=== PATIENT | female | born 1930 | race Caucasian/White ===

== ENCOUNTER → 2017-07-11 | Outpatient (CLI) | payer MEDICARE ==
[~2017-07-11] MED LIST: BRIM0.2S; CIPR250 PO; GLYB5TAB3 PO; METF500 PO; PRIN10TA PO
--- NOTE | 2017-07-11 12:11 | RADRPT ---
EXAM DATE/TIME: 07/11/2017 10:54 [facility] COMPARISON: No previous studies available for comparison. INDICATIONS : Intermitten dysphagia. FLUORO TIME: 1.7 minutes IMAGE COUNT: 1 CONTRAST: Dose as prescribed by speech pathologist. MEDICAL HISTORY : None. SURGICAL HISTORY : None. ENCOUNTER: Initial ACUITY: 2 weeks PAIN SCORE: 0/10 LOCATION: Esophagus. FINDINGS: A modified barium swallow was performed with speech pathology. Patient was given a variety of liquids to swallow. Patient tolerated all consistencies without evidence of aspiration or penetration. For a full detailed report, see report by the speech pathologist. CONCLUSION: Normal swallowing mechanism without evidence of aspiration. Nabli Kenny MD on July 11, 2017 at 12:08 Board Certified Radiologist. This report was verified electronically.
== END ==
LOC: HRAD 09:57
PROVIDERS: ATTEND Internal Medicine Gastroenterology
DX: R13.10 Dysphagia, unspecified (principal)
CPT/HCPCS: 74230; 92611; G8996; G8997; G8998

== ENCOUNTER 2017-11-28 13:45 | Observation (INO) | payer MEDICARE ==
[~2017-11-28] VITALS: Ht 160 cm; Wt 51.4 kg
[2017-11-28] VITALS (7 sets, daily range): BP systolic 148–164; BP diastolic 62–76; PULSE 67–85; RESP 15–18; TEMP 97.4–98.1; O2SAT 98–100
[2017-11-28] MEDS ORDERED: GLIP5TAB8 PO (14:19)
[2017-11-28] MEDS ORDERED: METF500T PO (14:19)
[2017-11-28] MEDS ORDERED: ASPI-516 PO (14:19)
[2017-11-28] MEDS ORDERED: SODIUM CHLORIDE 0.9% FLUSH 10 ML FLUSH IVF PRN (14:30)
--- NOTE | 2017-11-28 15:09 | PD ---
HPI Chief Complaint: Dizziness Time Seen by Provider: 14:29 Travel History International Travel<30 days: No Contact w/Intl Traveler<30days: No Traveled to known affect area: No History of Present Illness HPI pt is a pleasant 87 y.o female with a hx of DM who presents to the ED with Diplopia, and dizziness. Pt states that this morning she woke up with dizziness and inc severity of her double vision. She also reports having loss of balance and nausea. went to her Card Assembler who told her to come to the ED bc she might be having a stroke. Pt denies any H/A, difficulty with speech, weakness, or numbness of extremities. Also denies any lightheadedness, fever, palpitations, CP, or SOB. Modifying Factors: None Associated Signs & Symptoms: Nausea, dizziness, double vision Risk Factors: None History Past Medical History Menopausal: Yes Social History Alcohol Use: No Tobacco Use: No Allergies-Medications (Allergen,Severity, Reaction): Coded Allergies: lansoprazole (Verified Allergy, Intermediate, hives, 11/28/17) naproxen (Verified Allergy, Intermediate, hives, 11/28/17) simvastatin (Verified Allergy, Intermediate, hives, 11/28/17) penicillin G (Verified Allergy, Mild, RASH, 11/28/17) Reported Meds & Prescriptions Reported Meds & Active Scripts Active Reported Aspirin 81 Mg Chew 81 Mg PO DAILY Glipizide 5 Mg Tab 5 Mg PO DAILY Take 30 minutes before a meal Review of Systems Except as stated in HPI: all other systems reviewed are Neg Eyes: Positive: Diploplia Physical Exam Narrative GENERAL: Well-developed pleasant elderly white female patient currently and mild distress. Awake and oriented 3. SKIN: Focused skin assessment warm/dry. HEAD: Atraumatic. Normocephalic. EYES: Pupils equal and round. No scleral icterus. No injection or drainage. ENT: No nasal bleeding or discharge. Mucous membranes pink and moist. NECK: Trachea midline. No JVD. Supple. CARDIOVASCULAR: Regular rate and rhythm. No murmur appreciated. RESPIRATORY: No accessory muscle use. Clear to auscultation. Breath sounds equal bilaterally. GASTROINTESTINAL: Abdomen soft, non-tender, nondistended. Hepatic and splenic margins not palpable. MUSCULOSKELETAL: No obvious deformities. No clubbing. No cyanosis. No edema. NEUROLOGICAL: Awake and alert. No obvious cranial nerve deficits. Motor grossly within normal limits. Normal speech. No pronator drift. PSYCHIATRIC: Appropriate mood and affect; insight and judgment normal. Data Data Last Documented VS Vital Signs Date Time Temp Pulse Resp B/P (MAP) Pulse Ox O2 Delivery O2 Flow Rate FiO2 11/28/17 17:03 98.0 67 15 160/69 (99) 99 Room Air Orders Orders Electrocardiogram (11/28/17 14:29) Complete Blood Count With Diff (11/28/17 14:29) Comprehensive Metabolic Panel (11/28/17 14:29) Ckmb (Isoenzyme) Profile (11/28/17 14:29) Troponin I (11/28/17 14:29) Act Partial Throm Time (Ptt) (11/28/17 14:29) Prothrombin Time / Inr (Pt) (11/28/17 14:29) Urinalysis - C+S If Indicated (11/28/17 14:29) Chest, Single Ap (11/28/17 14:29) Ct Brain W/O Iv Contrast(Rout) (11/28/17 14:29) Ecg Monitoring (11/28/17 14:29) Iv Access Insert/Monitor (11/28/17 14:29) Oximetry (11/28/17 14:29) Sodium Chloride 0.9% Flush (Ns Flush) (11/28/17 14:30) Electrocardiogram (11/28/17 14:04) Aspirin (Aspirin) (11/28/17 18:00) Admit Order (Ed Use Only) (11/28/17 17:54) Labs Laboratory Tests Test 11/28/17 14:55 11/28/17 16:55 White Blood Count 6.4 TH/MM3 Red Blood Count 5.07 MIL/MM3 Hemoglobin 14.8 GM/DL Hematocrit 44.5 % Mean Corpuscular Volume 87.8 FL Mean Corpuscular Hemoglobin 29.1 PG Mean Corpuscular Hemoglobin Concent 33.2 % Red Cell Distribution Width 14.8 % Platelet Count 176 TH/MM3 Mean Platelet Volume 8.2 FL Neutrophils (%) (Auto) 71.5 % Lymphocytes (%) (Auto) 21.2 % Monocytes (%) (Auto) 4.5 % Eosinophils (%) (Auto) 1.6 % Basophils (%) (Auto) 1.2 % Neutrophils # (Auto) 4.6 TH/MM3 Lymphocytes # (Auto) 1.4 TH/MM3 Monocytes # (Auto) 0.3 TH/MM3 Eosinophils # (Auto) 0.1 TH/MM3 Basophils # (Auto) 0.1 TH/MM3 CBC Comment DIFF FINAL Differential Comment Prothrombin Time 10.7 SEC Prothromb Time International Ratio 1.1 RATIO Activated Partial Thromboplast Time 26.1 SEC Blood Urea Nitrogen 29 MG/DL Creatinine 1.42 MG/DL Random Glucose 111 MG/DL Total Protein 7.2 GM/DL Albumin 3.8 GM/DL Calcium Level 9.0 MG/DL Alkaline Phosphatase 86 U/L Aspartate Amino Transf (AST/SGOT) 34 U/L Alanine Aminotransferase (ALT/SGPT) 20 U/L Total Bilirubin 0.6 MG/DL Sodium Level 140 MEQ/L Potassium Level 4.9 MEQ/L Chloride Level 107 MEQ/L Carbon Dioxide Level 22.0 MEQ/L Anion Gap 11 MEQ/L Estimat Glomerular Filtration Rate 35 ML/MIN Total Creatine Kinase 93 U/L Troponin I LESS THAN 0.02 NG/ML Urine Color LIGHT-YELLOW Urine Turbidity CLEAR Urine pH 5.5 Urine Specific [place] 1.010 Urine Protein NEG mg/dL Urine Glucose (UA) NEG mg/dL Urine Ketones NEG mg/dL Urine Occult Blood NEG Urine Nitrite NEG Urine Bilirubin NEG Urine Urobilinogen LESS THAN 2.0 MG/DL Urine Leukocyte Esterase MOD Urine WBC 6 /hpf Urine Squamous Epithelial Cells 1 /hpf Urine Transitional Epithelial Cells <1 /hpf Urine Hyaline Casts 2 /lpf Urine Granular Casts 2 /lpf Microscopic Urinalysis Comment CULT NOT INDICATED MDM Medical Decision Making Medical Screen Exam Complete: Yes Emergency Medical Condition: Yes Medical Record Reviewed: Yes Interpretation(s) EKG shows normal sinus rhythm at a rate of 70 bpm with a left bundle branch block pattern unchanged from previous EKGs. Laboratory Tests Test 11/28/17 14:55 11/28/17 16:55 Neutrophils (%) (Auto) 71.5 % (16.0-70.0) Blood Urea Nitrogen 29 MG/DL (7-18) Creatinine 1.42 MG/DL (0.50-1.00) Random Glucose 111 MG/DL (74-106) Estimat Glomerular Filtration Rate 35 ML/MIN (>89) Troponin I LESS THAN 0.02 NG/ML Urine Leukocyte Esterase MOD (NEG) Urine WBC 6 /hpf (0-5) Last [address] 11/28/17 1429 Signed Impressions: Service Date/Time: Tuesday, November 28, 2017 15:42 - CONCLUSION: 1. Senescent changes without acute intracranial abnormality. Pérez Tovar MD Chest X-Ray 11/28/17 1429 Signed Impressions: Service Date/Time: Tuesday, November 28, 2017 14:59 - CONCLUSION: No acute disease. Daniel Grider MD Differential Diagnosis TIA versus CVA versus intracranial mass versus dehydration versus electrolyte abnormalities Narrative Course CAT scan was unremarkable. Lab work was fairly unremarkable. However, considering patient's symptoms, there is concern of possible TIA and aspirin has been given in the ER. Case is discussed with Dr. Melissa for admission. Diagnosis Primary Impression: TIA (transient ischemic attack) Admitting Information Admitting Physician Requests: Admit Kinga Linares MD November 28, 2017 15:09
--- NOTE | 2017-11-28 15:24 | RADRPT ---
EXAM DATE/TIME: 11/28/2017 14:59 [facility] COMPARISON: CHEST SINGLE AP, June 23, 2015, 15:57. INDICATIONS : Heart palpitations and shortness of breath. MEDICAL HISTORY : Carcinoma, breast. SURGICAL HISTORY : Mastectomy, left. Mastectomy, right. ENCOUNTER: Initial ACUITY: 1 day PAIN SCORE: 0/10 LOCATION: chest FINDINGS: A single view of the chest demonstrates the lungs to be symmetrically aerated without evidence of mas s, infiltrate or effusion. The cardiomediastinal contours are unremarkable. Osseous structures are intact. CONCLUSION: No acute disease. Daniel Grider MD on November 28, 2017 at 15:22 Board Certified Radiologist. This report was verified electronically.
[2017-11-28 15:29] LABS: AUTOMATED NEUTROPHIL # 4.6 TH/MM3 (1.8-7.7); BASOPHIL # 0.1 TH/MM3 (0-0.2); BASOPHIL % 1.2 % (0.0-2.0); EOSINOPHIL # 0.1 TH/MM3 (0-0.4); EOSINOPHIL % 1.6 % (0.0-4.0); HEMATOCRIT 44.5 % (35.0-46.0); HEMOGLOBIN 14.8 GM/DL (11.6-15.3); LYMPH % 21.2 % (9.0-44.0); LYMPHOCYTE # 1.4 TH/MM3 (1.0-4.8); MEAN CELL VOLUME 87.8 FL (80.0-100.0); MEAN CORPUSCULAR HEMOGLOBIN 29.1 PG (27.0-34.0); MEAN CORPUSCULAR HGB CONC 33.2 % (32.0-36.0); MEAN PLATELET VOLUME 8.2 FL (7.0-11.0); MONO % 4.5 % (0.0-8.0); MONOCYTE # 0.3 TH/MM3 (0-0.9); NEUT % 71.5 % (16.0-70.0); PLATELET COUNT 176 TH/MM3 (150-450); RED BLOOD COUNT 5.07 MIL/MM3 (4.00-5.30); RED CELL DISTRIBUTION WIDTH 14.8 % (11.6-17.2); WHITE BLOOD COUNT 6.4 TH/MM3 (4.0-11.0)
[2017-11-28 15:44] LABS: ALBUMIN 3.8 GM/DL (3.4-5.0); ALT (GPT) 20 U/L (10-53); AST (GOT) 34 U/L (15-37); CREATININE 1.42 MG/DL (0.50-1.00); GLOMERULAR FILTRATION RATE 35 ML/MIN (>89); GLUCOSE,RANDOM 111 MG/DL (74-106)
--- NOTE | 2017-11-28 15:52 | RADRPT ---
EXAM DATE/TIME: 11/28/2017 15:42 [facility] COMPARISON: No previous studies available for comparison. INDICATIONS : Dizziness. Patient states she has difficulty focusing her eyes. RADIATION DOSE: 33.41 CTDIvol (mGy) MEDICAL HISTORY : Cardiovascular disease. Hypertension. Diabetes mellitus type 2.Carcinoma, breast. SURGICAL HISTORY : None. ENCOUNTER: Initial ACUITY: 1 day PAIN SCALE: 0/10 LOCATION: cranial TECHNIQUE: Multiple contiguous axial images were obtained of the head. Using automated exposure control and adj ustment of the mA and/or kV according to patient size, radiation dose was kept as low as reasonably a chievable to obtain optimal diagnostic quality images. DICOM format image data is available electro nically for review and comparison. FINDINGS: CEREBRUM: Moderate diffuse cerebral atrophy. The ventricles are normal for degree of atrophy. No evidence of m idline shift, mass lesion, hemorrhage or acute infarction. No extra-axial fluid collections are seen . POSTERIOR FOSSA: The cerebellum and brainstem are intact. The 4th ventricle is midline. The cerebellopontine angle i s unremarkable. EXTRACRANIAL: The visualized portion of the orbits is intact. SKULL: The calvaria is intact. No evidence of skull fracture. CONCLUSION: 1. Senescent changes without acute intracranial abnormality. Pérez Tovar MD on November 28, 2017 at 15:50 Board Certified Radiologist. This report was verified electronically.
[2017-11-28 16:00] LABS: ALKALINE PHOSPHATASE 86 U/L (45-117); BLOOD UREA NITROGEN 29 MG/DL (7-18); CHLORIDE 107 MEQ/L (98-107); SODIUM (NA) 140 MEQ/L (136-145); TOTAL BILIRUBIN ADULT 0.6 MG/DL (0.2-1.0); TOTAL PROTEIN 7.2 GM/DL (6.4-8.2); TROPONIN I LESS THAN 0.02 NG/ML (0.02-0.05)
[2017-11-28 16:51] LABS: INTERNATIONAL NORMALIZED RATIO 1.1 RATIO; PROTHROMBIN TIME - PATIENT 10.7 SEC (9.8-11.6)
[2017-11-28 17:25] LABS: BILIRUBIN, URINE NEG (NEG); BLOOD, URINE NEG (NEG); GLUCOSE,URINE NEG (NEG); HYALINE CAST, URINE 2 /lpf (RARE); KETONE, URINE NEG (NEG); NITRITE,URINE NEG (NEG); PH, URINE 5.5 (5.0-8.5); SQUAMOUS EPITHELIAL CELL URINE 1 /hpf (0-5); TRANSITIONAL EPI CELLS, URINE <1 /hpf; URINE COLOR LIGHT-YELLOW (YELLW/STRAW); URINE LEUKOCYTE ESTERASE MOD (NEG)
[2017-11-28] MEDS ORDERED: ASPIRIN 325 MG TAB PO ONE (18:00)
[2017-11-28] MEDS ORDERED: MAGNESIUM HYDROXIDE SUSP 30 ML CUP PO PRN (20:45)
[2017-11-28] MEDS ORDERED: GLUCAGON 1 MG/ML VIAL OTHER PRN (20:45)
[2017-11-28] MEDS ORDERED: ACETAMINOPHEN 325 MG TAB PO PRN ×2 (20:45→23:45)
[2017-11-28] MEDS ORDERED: BISACODYL 10 MG SUPP RECTAL PRN (20:45)
[2017-11-28] MEDS ORDERED: SODIUM CHLORIDE 0.9% FLUSH 10 ML FLUSH IV FLUSH PRN (20:45)
[2017-11-28] MEDS ORDERED: SENNOSIDES 8.6 MG TAB PO PRN (20:45)
[2017-11-28] MEDS ORDERED: NALOXONE HCL 0.4 MG/ML AMP IV PUSH PRN (20:45)
[2017-11-28] MEDS ORDERED: LACTULOSE SYRUP 20 GM/30 ML CUP PO PRN (20:45)
[2017-11-28] MEDS ORDERED: DEXTROSE 50% IN WATER 50 ML VIAL(D50) IV PUSH PRN (20:45)
[2017-11-28] MEDS: DOCUSATE SODIUM 50 MG/SENNA 8.6 MG TAB PO SCH (21:00)
[2017-11-28] MEDS: INSULIN ASPART SUPPLEMENTAL SCALE SQ SCH (21:00)
--- NOTE | 2017-11-28 21:16 | HHI.HP ---
HPI Service [facility] Hospitalists Primary Care Physician Sergey Hodge D.O. Admission Diagnosis TIA Travel History International Travel<30 Days: No Contact w/Intl Traveler <30 Da: No Traveled to Known Affected Are: No History of Present Illness Very pleasant 87yo female with PMH of type 2 DM severe aortic stenosis, CKD presents to ED for 1 day history of binocular and horizontal diplopia. She went to her bridge ironworker helper office today (Dr. Chaney) who noticed that patient could not move her right eye medially. After discussion with PCP, patient was sent to ER for evaluation. Patient states the double vision goes away if she covers either eye. It is worse when she looks to her left. She denies speech problems, paresthesias, weakness, headache. Symptoms moderate. She does endorse some dysequilibrium today which she relates to the vision problem. Review of Systems ROS Limitations: Other (memory issues) Constitutional: DENIES: Fever, Chills Endocrine: DENIES: Polydipsia, Polyuria Eyes: COMPLAINS OF: Double Vision, DENIES: Eye inflammation, Eye pain, Vision loss Ears, nose, mouth, throat: DENIES: Hoarseness, Odynophagia Respiratory: DENIES: Cough, Shortness of breath Cardiovascular: DENIES: Chest pain, Palpitations Gastrointestinal: COMPLAINS OF: Difficulty Swallowing, DENIES: Constipation Musculoskeletal: DENIES: Stiffness, Back pain Integumentary: DENIES: Pruritus, Rash Hematologic/lymphatic: DENIES: Lymphadenopathy Neurologic: COMPLAINS OF: Poor Balance, DENIES: Abnormal gait, Headache, Localized weakness, Paresthesias, Seizures, Speech Problems, Tremor Psychiatric: DENIES: Anxiety, Confusion Past Family Social History Past Medical History DM 2 CKD stage 3 memory loss moderate mitral valve stenosis and regurgitation, severe aortic valve stenosis, normal LV function glaucoma dysphagia (was supposed to have EGD several months ago but doesn't look like she did) peptic ulcer disease peripheral vascular disease subclinical hypothyroidism hyperlipidemia LVH hiatal hernia history of gait ataxia essential tremor Reported Medications Allergies Coded Allergies Type Severity Reaction Last Updated Verified lansoprazole Allergy Intermediate hives 11/28/17 Yes naproxen Allergy Intermediate hives 11/28/17 Yes simvastatin Allergy Intermediate hives 11/28/17 Yes penicillin G Allergy Mild RASH 11/28/17 Yes Active Scripts Medications Dose Route/Sig Max Daily Dose Days Date Category Dose Instructions Aspirin 81 Mg Chew 81 Mg PO DAILY 11/28/17 Reported Glipizide 5 Mg Tab 5 Mg PO DAILY 11/28/17 Reported Take 30 minutes before a meal Allergies: Coded Allergies: lansoprazole (Verified Allergy, Intermediate, hives, 11/28/17) naproxen (Verified Allergy, Intermediate, hives, 11/28/17) simvastatin (Verified Allergy, Intermediate, hives, 11/28/17) penicillin G (Verified Allergy, Mild, RASH, 11/28/17) Family History reviewed, [place] Social History no e/t/d Physical Exam Vital Signs Vital Signs Date Time Temp Pulse Resp B/P (MAP) Pulse Ox O2 Delivery O2 Flow Rate FiO2 11/28/17 18:09 98.1 85 15 159/62 (94) 98 Room Air 11/28/17 17:03 98.0 67 15 160/69 (99) 99 Room Air 11/28/17 15:54 97.6 68 16 148/72 (97) 100 Room Air 11/28/17 14:30 17 98 11/28/17 14:12 74 18 160/76 (104) 100 11/28/17 14:10 Room Air 11/28/17 13:46 97.4 77 18 164/71 (102) 99 Physical Exam GENERAL: This is a well-nourished, well-developed patient, in no apparent distress. SKIN: No rashes, ecchymoses or lesions. Cool and dry. HEAD: Atraumatic. Normocephalic. EYES: Unable to adduct her right eye past the midline. No ptosis. Pupils equal round and reactive, with intact efferent and afferent response. No scleral icterus. No injection or drainage. ENT: Throat without erythema, tonsillar hypertrophy or exudate. Uvula midline. Airway patent. NECK: Trachea midline. No JVD or lymphadenopathy. CARDIOVASCULAR: Loud systolic murmur best heard at LSB. Regular rate and rhythm. RESPIRATORY: Clear to auscultation. Breath sounds equal bilaterally. No wheezes , rales, or rhonchi. GASTROINTESTINAL: Abdomen soft, non-tender, nondistended. BS+ MUSCULOSKELETAL: Extremities without clubbing, cyanosis, or edema. NEUROLOGICAL: Awake and alert. Cranial nerves II through XII intact. Motor and sensory grossly within normal limits. Five out of 5 muscle strength in all muscle groups. Normal speech. Laboratory Laboratory Tests Test 11/28/17 14:55 11/28/17 16:55 White Blood Count 6.4 Red Blood Count 5.07 Hemoglobin 14.8 Hematocrit 44.5 Mean Corpuscular Volume 87.8 Mean Corpuscular Hemoglobin 29.1 Mean Corpuscular Hemoglobin Concent 33.2 Red Cell Distribution Width 14.8 Platelet Count 176 Mean Platelet Volume 8.2 Neutrophils (%) (Auto) 71.5 Lymphocytes (%) (Auto) 21.2 Monocytes (%) (Auto) 4.5 Eosinophils (%) (Auto) 1.6 Basophils (%) (Auto) 1.2 Neutrophils # (Auto) 4.6 Lymphocytes # (Auto) 1.4 Monocytes # (Auto) 0.3 Eosinophils # (Auto) 0.1 Basophils # (Auto) 0.1 CBC Comment DIFF FINAL Differential Comment Prothrombin Time 10.7 Prothromb Time International Ratio 1.1 Activated Partial Thromboplast Time 26.1 Blood Urea Nitrogen 29 Creatinine 1.42 Random Glucose 111 Total Protein 7.2 Albumin 3.8 Calcium Level 9.0 Alkaline Phosphatase 86 Aspartate Amino Transf (AST/SGOT) 34 Alanine Aminotransferase (ALT/SGPT) 20 Total Bilirubin 0.6 Sodium Level 140 Potassium Level 4.9 Chloride Level 107 Carbon Dioxide Level 22.0 Anion Gap 11 Estimat Glomerular Filtration Rate 35 Total Creatine Kinase 93 Troponin I LESS THAN 0.02 Urine Color LIGHT-YELLOW Urine Turbidity CLEAR Urine pH 5.5 Urine Specific [place] 1.010 Urine Protein NEG Urine Glucose (UA) NEG Urine Ketones NEG Urine Occult Blood NEG Urine Nitrite NEG Urine Bilirubin NEG Urine Urobilinogen LESS THAN 2.0 Urine Leukocyte Esterase MOD Urine WBC 6 Urine Squamous Epithelial Cells 1 Urine Transitional Epithelial Cells <1 Urine Hyaline Casts 2 Urine Granular Casts 2 Microscopic Urinalysis Comment CULT NOT INDICATED Result Diagram: 11/28/17 1455 11/28/17 1455 Imaging Last Impressions Head CT 11/28/171428 Signed Impressions: Service Date/Time: Tuesday, November 28, 2017 15:42 - CONCLUSION: 1. Senescent changes without acute intracranial abnormality. Pérez Tovar MD Chest X-Ray 11/28/171428 Signed Impressions: Service Date/Time: Tuesday, November 28, 2017 14:59 - CONCLUSION: No acute disease. Daniel A. Cheo, MD Caprini VTE Risk Assessment Caprini VTE Risk Assessment: Mod/High Risk (score >= 2) Caprini Risk Assessment Model Point Value = 1 Point Value = 2 Point Value = 3 Point Value = 5 Age 41-60 Minor surgery BMI > 25 kg/m2 Swollen legs Varicose veins or History of unexplained or recurrent spontaneous Oral contraceptives or hormone replacement Sepsis (< 1 month) Serious lung disease, including pneumonia (< 1 month) Abnormal pulmonary function Acute myocardial infarction Congestive heart failure (< 1 month) History of inflammatory bowel disease Medical patient at bed rest Age 61-74 Arthroscopic surgery Major open surgery (> 45 min) Laparoscopic surgery (> 45 min) Malignancy Confined to bed (> 72 hours) Immobilizing plaster cast Central venous access Age >= 75 History of VTE Family history of VTE Factor V Leiden Prothrombin [id number] Lupus anticoagulant Anticardiolipin antibodies Elevated serum homocysteine Heparin-induced thrombocytopenia Other congenital or acquired thrombophilia Stroke (< 1 month) Elective arthroplasty Hip, pelvis, or leg fracture Acute spinal cord injury (< 1 month) Prophylaxis Regimen Total Risk Factor Score Risk Level Prophylaxis Regimen 0-1 Low Early ambulation 2 Moderate Order ONE of the following: *Sequential Compression Device (SCD) *Heparin 5000 units SQ BID 3-4 Higher Order ONE of the following medications: *Heparin 5000 units SQ TID *Enoxaparin/Lovenox 40 mg SQ daily (WT < 150 kg, CrCl > 30 mL/min) *Enoxaparin/Lovenox 30 mg SQ daily (WT < 150 kg, CrCl > 10-29 mL/min) *Enoxaparin/Lovenox 30 mg SQ BID (WT < 150 kg, CrCl > 30 mL/min) AND/OR *Sequential Compression Device (SCD) 5 or more Highest Order ONE of the following medications: *Heparin 5000 units SQ TID (Preferred with Epidurals) *Enoxaparin/Lovenox 40 mg SQ daily (WT < 150 kg, CrCl > 30 mL/min) *Enoxaparin/Lovenox 30 mg SQ daily (WT < 150 kg, CrCl > 10-29 mL/min) *Enoxaparin/Lovenox 30 mg SQ BID (WT < 150 kg, CrCl > 30 mL/min) AND *Sequential Compression Device (SCD) Assessment and Plan Problem List: (1) Diplopia ICD Codes: H53.2 - Diplopia (2) CN III palsy, right eye ICD Codes: H49.01 - Third [oculomotor] nerve palsy, right eye (3) CKD (chronic kidney disease) stage 3, GFR 30-59 ml/min ICD Codes: N18.3 - Chronic kidney disease, stage 3 (moderate) Status: Chronic (4) Diabetes mellitus type 2, noninsulin dependent ICD Codes: E11.9 - Type 2 diabetes mellitus without complications Status: Acute (5) Aortic valve stenosis ICD Codes: I35.0 - Nonrheumatic aortic (valve) stenosis Status: Chronic Assessment and Plan Horizontal diplopia - seems to be due to incomplete CN 3 palsy - she does not have pupillary involvement that I can see, no lid drooping. I do not think she had a CVA, but will order MRI to ensure. Will consult neurology for opinion. She saw her opthalmologist Dr. Chaney earlier today. Patient had a 2d echo this month showing moderate mitral valve stenosis and regurgitation, severe concentric LVH, severe aortic valve stenosis, normal LV function, as well as doppler carotid ultrasound last month showing mild nonobstructive plaque so I will not repeat those studies. She is on aspirin and statin. DM 2 - place on SSI. CKD stage 3 - monitor cr and avoid nephrotoxins. memory loss - sees neurology as outpatient. dysphagia (was supposed to have EGD several months ago but doesn't look like she did) - will place on mechanical soft diet. DVT px - SCDs. Teri Melissa MD November 28, 2017 21:15
[2017-11-28 21:20] LABS: CHOLESTEROL/ HDL RATIO 3.91 RATIO; HDL CHOLESTEROL 57.4 MG/DL (40.0-60.0)
--- NOTE | 2017-11-28 22:15 | RADRPT ---
EXAM DATE/TIME: 11/28/2017 21:21 [facility] COMPARISON: CT BRAIN W/O CONTRAST, November 28, 2017, 15:42. INDICATIONS : TIA. Split vision that started today. MEDICAL HISTORY : Carcinoma, breast. Diabetes mellitus type 2. SURGICAL HISTORY : Mastectomy, bilateral. ENCOUNTER: Initial ACUITY: 1 day PAIN SCORE: 4/10 LOCATION: Left eye. TECHNIQUE: Multiplanar, multisequence MRI of the brain was performed without contrast. FINDINGS: CEREBRUM: The ventricles and cortical sulci are mildly dilated. There is minimal increased signal within the ce rebral white matter. No evidence of midline shift, mass lesion, hemorrhage or acute infarction. No extraaxial fluid collections are seen. There is an empty sella configuration. The suprasellar cistern is normal in configuration. POSTERIOR FOSSA: The cerebellum and brainstem are intact. The 4th ventricle is midline. The cerebellopontine angle is unremarkable. The cerebellar tonsils are normal in position. DIFFUSION IMAGING: No focal areas of restricted diffusion are seen. No evidence of acute infarction. EXTRACRANIAL: The visualized portions of the orbits and paranasal sinuses are unremarkable. CONCLUSION: 1. No acute abnormality seen. 2. Mild atrophy and suspected small vessel ischemic change in the white matter. Javier Silva MD on November 28, 2017 at 22:11 Board Certified Radiologist. This report was verified electronically.
[2017-11-28] MEDS: SODIUM CHLORIDE 0.9% FLUSH 10 ML FLUSH IV FLUSH SCH (22:46)
[2017-11-29] VITALS (10 sets, daily range): BP systolic 114–174; BP diastolic 58–74; PULSE 60–75; RESP 16–20; TEMP 97.5–98.4; O2SAT 96–99
[2017-11-29 07:29] LABS: AUTOMATED NEUTROPHIL # 2.8 TH/MM3 (1.8-7.7); BASOPHIL # 0.1 TH/MM3 (0-0.2); BASOPHIL % 1.2 % (0.0-2.0); EOSINOPHIL # 0.3 TH/MM3 (0-0.4); EOSINOPHIL % 5.1 % (0.0-4.0); HEMATOCRIT 42.9 % (35.0-46.0); HEMOGLOBIN 14.4 GM/DL (11.6-15.3); LYMPH % 33.4 % (9.0-44.0); LYMPHOCYTE # 1.8 TH/MM3 (1.0-4.8); MEAN CELL VOLUME 85.8 FL (80.0-100.0); MEAN CORPUSCULAR HEMOGLOBIN 28.8 PG (27.0-34.0); MEAN CORPUSCULAR HGB CONC 33.5 % (32.0-36.0); MEAN PLATELET VOLUME 8.4 FL (7.0-11.0); MONO % 8.5 % (0.0-8.0); MONOCYTE # 0.5 TH/MM3 (0-0.9); NEUT % 51.8 % (16.0-70.0); PLATELET COUNT 179 TH/MM3 (150-450); RED CELL DISTRIBUTION WIDTH 15.1 % (11.6-17.2); WHITE BLOOD COUNT 5.4 TH/MM3 (4.0-11.0)
[2017-11-29] MEDS: INSULIN ASPART SUPPLEMENTAL SCALE SQ SCH ×4 (08:00→21:00)
[2017-11-29 08:07] LABS: BICARBONATE 25.4 MEQ/L (21.0-32.0); CALCIUM 9.1 MG/DL (8.5-10.1); CREATININE 1.2 MG/DL (0.50-1.00)
[2017-11-29] MEDS: DOCUSATE SODIUM 50 MG/SENNA 8.6 MG TAB PO SCH ×2 (09:00→21:00)
[2017-11-29] MEDS: SODIUM CHLORIDE 0.9% FLUSH 10 ML FLUSH IV FLUSH SCH ×2 (09:28→21:35)
[2017-11-29] MEDS: ASPIRIN 325 MG TAB PO SCH (09:28)
--- NOTE | 2017-11-29 09:35 | PD.CONS ---
History of Present Illness Service Neurology Consult Requested By Medical Reason for Consult TIA Primary Care Physician Sergey Hodge D.O. History of Present Illness Pleasant 79-year-old female admitted for possible stroke. States she woke up yesterday and noticed double vision. Horizontal diplopia occurring with both eyes open subsiding either eyes closed. She also felt a little bit off balance. Does have a history of underlying diabetes. States she lives alone with her 2 cats. Denies any headache fever night sweats or chills or any focal weakness or sensory symptoms. Review of systems as above and as per admission H&P rest of 12 point negative Past Family Social History Past Medical History DM 2 CKD stage 3 moderate mitral valve stenosis and regurgitation, severe aortic valve stenosis, normal LV function glaucoma peptic ulcer disease peripheral vascular disease subclinical hypothyroidism hyperlipidemia LVH hiatal hernia history of gait ataxia essential tremor Allergies: Coded Allergies: lansoprazole (Verified Allergy, Intermediate, hives, 11/28/17) naproxen (Verified Allergy, Intermediate, hives, 11/28/17) simvastatin (Verified Allergy, Intermediate, hives, 11/28/17) penicillin G (Verified Allergy, Mild, RASH, 11/28/17) Family History reviewed, [place] Social History no e/t/d Review of Systems All other ROS: ROS reviewed as documented in chart Past Family Social History Allergies: Coded Allergies: lansoprazole (Verified Allergy, Intermediate, hives, 11/28/17) naproxen (Verified Allergy, Intermediate, hives, 11/28/17) simvastatin (Verified Allergy, Intermediate, hives, 11/28/17) penicillin G (Verified Allergy, Mild, RASH, 11/28/17) Active Ordered Medications Current Medications Medications (Trade) Dose Ordered Sig/Casie Route Start Time Stop Time Status Last Admin (NS Flush) 2 ml UNSCH PRN IV FLUSH 11/28/17 20:45 (NS Flush) 2 ml BID IV FLUSH 11/28/17 21:00 11/28/17 22:46 (Tylenol) 650 mg Q4H PRN PO 11/28/17 20:45 (Narcan Inj) 0.4 mg UNSCH PRN IV PUSH 11/28/17 20:45 (Gris-Colace) 1 tab BID PO 11/28/17 21:00 (Milk Of Magnesia Liq) 30 ml Q12H PRN PO 11/28/17 20:45 (Senokot) 17.2 mg Q12H PRN PO 11/28/17 20:45 (Dulcolax Supp) 10 mg DAILY PRN RECTAL 11/28/17 20:45 (Lactulose Liq) 30 ml DAILY PRN PO 11/28/17 20:45 (D50w (Vial) Inj) 50 ml UNSCH PRN IV PUSH 11/28/17 20:45 (Glucagon Inj) 1 mg UNSCH PRN OTHER 11/28/17 20:45 (NovoLOG SUPPLEMENTAL SCALE) 1 ACHS SLIDING SCALE SQ 11/28/17 21:00 (Aspirin) 325 mg DAILY PO 11/29/17 09:00 (Tylenol) 650 mg Q4H PRN PO 11/28/17 23:45 11/29/17 00:08 Exam I&O / VS Vital Signs Date Time Temp Pulse Resp B/P (MAP) Pulse Ox O2 Delivery O2 Flow Rate FiO2 11/29/17 07:48 97.5 67 20 114/67 (83) 98 11/29/17 04:00 63 11/29/17 03:53 98.4 67 17 122/58 (79) 96 11/28/17 22:35 16 152/68 (96) 100 11/28/17 18:09 98.1 85 15 159/62 (94) 98 Room Air 11/28/17 17:03 98.0 67 15 160/69 (99) 99 Room Air 11/28/17 15:54 97.6 68 16 148/72 (97) 100 Room Air 11/28/17 14:30 17 98 11/28/17 14:12 74 18 160/76 (104) 100 11/28/17 14:10 Room Air 11/28/17 13:46 97.4 77 18 164/71 (102) 99 General: Alert and Oriented, No acute distress Eye: EOMI Respiratory: Non-labored respirations Cardiology: Normal rate Musculoskeletal: ROM Neurologic: Alert, Oriented, Normal sensory, Normal motor, Normal DTR's Psychiatric: Cooperative, Appropriate mood & affect Exam Comments Pleasant 87-year-old female lying in bed looks well for her age. Oriented 3. Follows motor requests, no aphasia. No temporal tenderness neck supple weakness of the right medial rectus with diplopia on left gaze. Upgaze downgaze intact. Able to look to the right without any difficulty. No ptosis noted. Pupils 3 mm sluggishly reactive. No gross facial asymmetry visual ac full tongue midline. V1 to V3 sensation intact. Strength 5 out of 5 upper lower limbs. Mild postural tremor. Reflexes symmetric gait not assessed secondary to fall risk. Review/Management Diagnosis/Plan: (1) CN III palsy, right eye ICD Codes: H49.01 - Third [oculomotor] nerve palsy, right eye Status: Acute Plan: Selective involvement of the right medial rectus without pupillary involvement or any ptosis MRI brain scan reviewed no brainstem lesions noted. This is likely related to peripheral ischemic disease secondary to chronic diabetes and hypertension. A tiny infarct affecting the medial longitudinal fasciculus cannot be entirely excluded and a repeat MRI in the future may be necessary if her symptoms do not improve Recommendations obtain a follow-up MRI of the brain, aspirin, blood pressure blood sugar lipid control Check ESR CRP PT evaluation Discharge planning possibly tomorrow She may require inpatient rehabilitation (2) Diabetes mellitus type 2, noninsulin dependent ICD Codes: E11.9 - Type 2 diabetes mellitus without complications Status: Chronic Plan: Blood sugar control per medical (3) CKD (chronic kidney disease) stage 3, GFR 30-59 ml/min ICD Codes: N18.3 - Chronic kidney disease, stage 3 (moderate) Status: Chronic Plan: Blood pressure control her medical (4) Hyperlipidemia ICD Codes: E78.5 - Hyperlipidemia, unspecified Status: Chronic Plan: LDL less than 100 Zane Bustamante MD November 29, 2017 09:35
--- NOTE | 2017-11-29 10:42 | HHI.PR ---
Subjective Remarks Pt down for MRI, will re-evaluate after she returns to floor Pt re-evaluated following MRI and is sitting up in the chair, drawing on a paper towel. No new complaints. She has patch over left eye and reports that vision is better with the patch Objective Vitals Vital Signs Date Time Temp Pulse Resp B/P (MAP) Pulse Ox O2 Delivery O2 Flow Rate FiO2 11/29/17 07:48 97.5 67 20 114/67 (83) 98 11/29/17 04:00 63 11/29/17 03:53 98.4 67 17 122/58 (79) 96 11/28/17 22:35 16 152/68 (96) 100 11/28/17 18:09 98.1 85 15 159/62 (94) 98 Room Air 11/28/17 17:03 98.0 67 15 160/69 (99) 99 Room Air 11/28/17 15:54 97.6 68 16 148/72 (97) 100 Room Air 11/28/17 14:30 17 98 11/28/17 14:12 74 18 160/76 (104) 100 11/28/17 14:10 Room Air 11/28/17 13:46 97.4 77 18 164/71 (102) 99 Result Diagram: 11/29/17 0543 11/29/17 0543 Other Results Laboratory Tests Test 11/28/17 14:55 11/28/17 16:55 11/29/17 05:43 White Blood Count 6.4 TH/MM3 5.4 TH/MM3 Red Blood Count 5.07 MIL/MM3 5.00 MIL/MM3 Hemoglobin 14.8 GM/DL 14.4 GM/DL Hematocrit 44.5 % 42.9 % Mean Corpuscular Volume 87.8 FL 85.8 FL Mean Corpuscular Hemoglobin 29.1 PG 28.8 PG Mean Corpuscular Hemoglobin Concent 33.2 % 33.5 % Red Cell Distribution Width 14.8 % 15.1 % Platelet Count 176 TH/MM3 179 TH/MM3 Mean Platelet Volume 8.2 FL 8.4 FL Neutrophils (%) (Auto) 71.5 % 51.8 % Lymphocytes (%) (Auto) 21.2 % 33.4 % Monocytes (%) (Auto) 4.5 % 8.5 % Eosinophils (%) (Auto) 1.6 % 5.1 % Basophils (%) (Auto) 1.2 % 1.2 % Neutrophils # (Auto) 4.6 TH/MM3 2.8 TH/MM3 Lymphocytes # (Auto) 1.4 TH/MM3 1.8 TH/MM3 Monocytes # (Auto) 0.3 TH/MM3 0.5 TH/MM3 Eosinophils # (Auto) 0.1 TH/MM3 0.3 TH/MM3 Basophils # (Auto) 0.1 TH/MM3 0.1 TH/MM3 CBC Comment DIFF FINAL DIFF FINAL Differential Comment Prothrombin Time 10.7 SEC Prothromb Time International Ratio 1.1 RATIO Activated Partial Thromboplast Time 26.1 SEC Blood Urea Nitrogen 29 MG/DL 28 MG/DL Creatinine 1.42 MG/DL 1.20 MG/DL Random Glucose 111 MG/DL 96 MG/DL Total Protein 7.2 GM/DL Albumin 3.8 GM/DL Calcium Level 9.0 MG/DL 9.1 MG/DL Alkaline Phosphatase 86 U/L Aspartate Amino Transf (AST/SGOT) 34 U/L Alanine Aminotransferase (ALT/SGPT) 20 U/L Total Bilirubin 0.6 MG/DL Sodium Level 140 MEQ/L 142 MEQ/L Potassium Level 4.9 MEQ/L 3.8 MEQ/L Chloride Level 107 MEQ/L 108 MEQ/L Carbon Dioxide Level 22.0 MEQ/L 25.4 MEQ/L Anion Gap 11 MEQ/L 9 MEQ/L Estimat Glomerular Filtration Rate 35 ML/MIN 42 ML/MIN Total Creatine Kinase 93 U/L Troponin I LESS THAN 0.02 NG/ML Triglycerides Level 90 MG/DL Cholesterol Level 225 MG/DL LDL Cholesterol 150 MG/DL HDL Cholesterol 57.4 MG/DL Cholesterol/HDL Ratio 3.91 RATIO Urine Color LIGHT-YELLOW Urine Turbidity CLEAR Urine pH 5.5 Urine Specific [place] 1.010 Urine Protein NEG mg/dL Urine Glucose (UA) NEG mg/dL Urine Ketones NEG mg/dL Urine Occult Blood NEG Urine Nitrite NEG Urine Bilirubin NEG Urine Urobilinogen LESS THAN 2.0 MG/DL Urine Leukocyte Esterase MOD Urine WBC 6 /hpf Urine Squamous Epithelial Cells 1 /hpf Urine Transitional Epithelial Cells <1 /hpf Urine Hyaline Casts 2 /lpf Urine Granular Casts 2 /lpf Microscopic Urinalysis Comment CULT NOT INDICATED Imaging Last Impressions Head CT 11/28/17 0360 Signed Impressions: Service Date/Time: Tuesday, November 28, 2017 15:42 - CONCLUSION: 1. Senescent changes without acute intracranial abnormality. Pérez Tovar MD Chest X-Ray 11/28/17 1429 Signed Impressions: Service Date/Time: Tuesday, November 28, 2017 14:59 - CONCLUSION: No acute disease. Daniel Grider MD Brain MRI 11/28/17 0000 Signed Impressions: Service Date/Time: Tuesday, November 28, 2017 21:21 - CONCLUSION: 1. No acute abnormality seen. 2. Mild atrophy and suspected small vessel ischemic change in the white matter. Javier Silva MD Objective Remarks General: NAD, AAOx3 ENT: Patch over left eye, weakness of the right medial rectus with diplopia on left gaze. Upward gaze and downward gaze are intact. No ptosis noted. Chest: CTA Cardiac: Regular Abd: +BS, soft ND/NT Ext: No edema A/P Problem List: (1) Diplopia ICD Codes: H53.2 - Diplopia Plan: Horizontal diplopia CN 3 palsy, right eye - Pt is an 87 y/o female with diabetes mellitus, type 2, CKD, stage 3 and severe aortic valve stenosis - [place] [facility] [place] with complaints of waking up with double vision/horizontal diplopia occurring with both eyes, open subsiding when either eyes is closed. She also felt a little bit off balance. - She saw her vegetable vendor Dr. Chaney yesterday and was recommended to go to the ER for further evaluation. - MRI (11/28/17) --> No acute abnormality seen. Mild atrophy and suspected small vessel ischemic change in the white matter. - Patient had an outpt 2D echo this month showing moderate mitral valve stenosis and regurgitation, severe concentric LVH, severe aortic valve stenosis , normal LV function, as well as Doppler carotid ultrasound last month showing mild nonobstructive plaque so I will not repeat those studies. - She is on aspirin and statin. - Neurology was consulted, review of Dr. Bustamante's notes indicate selective involvement of the right medial rectus without pupillary involvement or any ptosis, felt to be likely related to peripheral ischemic disease secondary to chronic diabetes - He has ordered an MRA brain today as he cannot r/o a tiny infarct affecting the medial longitudinal fasciculus - ESR, CRP are pending - PT evaluation Diabetes Mellitus, type 2 - Pt refusing SSI - Resume home dose of Glipizide - Accu checks CKD stage 3 - Monitor cr and avoid nephrotoxins. Memory loss - Pt follows with Neurology as outpatient. Dysphagia - Pt was supposed to have EGD several months ago but doesn't look like she did - Pt was placed on mechanical soft diet at admission DVT prophylaxis with SCDs. (2) CN III palsy, right eye ICD Codes: H49.01 - Third [oculomotor] nerve palsy, right eye Status: Acute (3) CKD (chronic kidney disease) stage 3, GFR 30-59 ml/min ICD Codes: N18.3 - Chronic kidney disease, stage 3 (moderate) Status: Chronic (4) Diabetes mellitus type 2, noninsulin dependent ICD Codes: E11.9 - Type 2 diabetes mellitus without complications Status: Chronic (5) Aortic valve stenosis ICD Codes: I35.0 - Nonrheumatic aortic (valve) stenosis Status: Chronic Lorie Underwood November 29, 2017 10:42
[2017-11-29] MEDS: glipiZIDE 5 MG TAB PO SCH (10:56)
--- NOTE | 2017-11-29 10:58 | RADRPT ---
EXAM DATE/TIME: 11/29/2017 09:59 [facility] COMPARISON: No previous studies available for comparison. INDICATIONS : Diplopia. MEDICAL HISTORY : Carcinoma, breast. SURGICAL HISTORY : Mastectomy, bilateral. ENCOUNTER: Initial ACUITY: 1 day PAIN SCORE: 0/10 LOCATION: cranial Please note a normal MRA of the brain does not entirely exclude the possibility of a small aneurysm, nor the possibility of distal intracranial vessel disease. TECHNIQUE: 3D time of flight MRA was performed. Source images, multiplanar STS MIP, and 3D volume MIP reconstru ctions were reviewed. FINDINGS: There is excellent visualization of the major intracranial arteries out to the second-order branch ve ssels. There is no evidence for aneurysm, vessel truncation or stenosis, and no evidence for vascula r malformation. The left posterior cerebral artery arises from the anterior circulation. The anteri or communicating artery is patent. CONCLUSION: No evidence of vessel truncation or aneurysm. Jimmy Webster MD on November 29, 2017 at 10:55 Board Certified Radiologist. This report was verified electronically.
[2017-11-29 13:18] LABS: C-REACTIVE PROTEIN LESS THAN 0.29 MG/DL (0.00-0.30)
--- NOTE | 2017-11-29 13:57 | EKG ---
Date Performed: 11/28/2017 Time Performed: 14:53:49 PTAGE: 87 years EKG: Sinus rhythm WITH FIRST DEGREE AV BLOCK LEFT ATRIAL ENLARGEMENT INTRAVENTRICULAR CONDUCTION DELAY ABNORMAL ECG PREVIOUS TRACING : 11/28/2017 14.04 Since the previous tracing, no significant change noted DOCTOR: Paddy Bender Interpretating Date/Time 11/29/2017 13:53:42
--- NOTE | 2017-11-29 13:59 | EKG ---
Date Performed: 11/28/2017 Time Performed: 14:04:25 PTAGE: 87 years EKG: Sinus rhythm LEFT BUNDLE BRANCH BLOCK ABNORMAL ECG PREVIOUS TRACING : 06/23/2015 14.39 Since the previous tracing, no significant change noted DOCTOR: Paddy Bender Interpretating Date/Time 11/29/2017 13:55:47
[2017-11-30] VITALS (8 sets, daily range): BP systolic 129–170; BP diastolic 68–79; PULSE 57–88; RESP 17–20; TEMP 98.1–98.2; O2SAT 96–99
[2017-11-30] MEDS: INSULIN ASPART SUPPLEMENTAL SCALE SQ SCH ×4 (07:46→20:41)
[2017-11-30] MEDS: ASPIRIN 325 MG TAB PO SCH (08:49)
[2017-11-30] MEDS: glipiZIDE 5 MG TAB PO SCH (08:49)
[2017-11-30] MEDS: SODIUM CHLORIDE 0.9% FLUSH 10 ML FLUSH IV FLUSH SCH ×2 (08:50→20:39)
[2017-11-30] MEDS: DOCUSATE SODIUM 50 MG/SENNA 8.6 MG TAB PO SCH ×2 (08:51→20:39)
--- NOTE | 2017-11-30 10:20 | HHI.PR ---
Review/Management Diagnosis/Plan: (1) CN III palsy, right eye ICD Codes: H49.01 - Third [oculomotor] nerve palsy, right eye Status: Acute Plan: Selective involvement of the right medial rectus without pupillary involvement or any ptosis MRI brain scan reviewed no brainstem lesions noted. This is likely related to peripheral ischemic disease secondary to chronic diabetes and hypertension. A tiny infarct affecting the medial longitudinal fasciculus cannot be entirely excluded and a repeat MRI in the future may be necessary if her symptoms do not improve Recommendations obtain a follow-up MRI of the brain, aspirin, blood pressure blood sugar lipid control Check ESR CRP PT evaluation Discharge planning possibly tomorrow She may require inpatient rehabilitation (2) Diabetes mellitus type 2, noninsulin dependent ICD Codes: E11.9 - Type 2 diabetes mellitus without complications Status: Chronic Plan: Blood sugar control per medical (3) CKD (chronic kidney disease) stage 3, GFR 30-59 ml/min ICD Codes: N18.3 - Chronic kidney disease, stage 3 (moderate) Status: Chronic Plan: Blood pressure control her medical (4) Hyperlipidemia ICD Codes: E78.5 - Hyperlipidemia, unspecified Status: Chronic Plan: LDL less than 100 Subjective Subjective Comments No acute events reported No headache No chest pain No dyspnea Active Medications Current Medications Medications (Trade) Dose Ordered Sig/Casie Route Start Time Stop Time Status Last Admin (NS Flush) 2 ml UNSCH PRN IV FLUSH 11/28/17 20:45 (NS Flush) 2 ml BID IV FLUSH 11/28/17 21:00 11/30/17 08:50 (Tylenol) 650 mg Q4H PRN PO 11/28/17 20:45 (Narcan Inj) 0.4 mg UNSCH PRN IV PUSH 11/28/17 20:45 (Gris-Colace) 1 tab BID PO 11/28/17 21:00 (Milk Of Magnesia Liq) 30 ml Q12H PRN PO 11/28/17 20:45 (Senokot) 17.2 mg Q12H PRN PO 11/28/17 20:45 (Dulcolax Supp) 10 mg DAILY PRN RECTAL 11/28/17 20:45 (Lactulose Liq) 30 ml DAILY PRN PO 11/28/17 20:45 (D50w (Vial) Inj) 50 ml UNSCH PRN IV PUSH 11/28/17 20:45 (Glucagon Inj) 1 mg UNSCH PRN OTHER 11/28/17 20:45 (NovoLOG SUPPLEMENTAL SCALE) 1 ACHS SLIDING SCALE SQ 11/28/17 21:00 (Aspirin) 325 mg DAILY PO 11/29/17 09:00 11/30/17 08:49 (Tylenol) 650 mg Q4H PRN PO 11/28/17 23:45 11/29/17 00:08 (Glucotrol) 5 mg DAILY PO 11/29/17 10:45 11/30/17 08:49 Allergies Allergies Coded Allergies lansoprazole (Verified Allergy, Intermediate, hives, 11/28/17) naproxen (Verified Allergy, Intermediate, hives, 11/28/17) simvastatin (Verified Allergy, Intermediate, hives, 11/28/17) penicillin G (Verified Allergy, Mild, RASH, 11/28/17) Review of Systems All other ROS: ROS reviewed as documented in chart Exam I&O / VS Vital Signs Date Time Temp Pulse Resp B/P (MAP) Pulse Ox O2 Delivery O2 Flow Rate FiO2 11/30/17 08:02 98.2 68 20 140/68 (92) 98 11/30/17 04:00 57 11/30/17 03:25 98.1 62 17 129/68 (88) 99 11/30/17 00:00 88 11/29/17 23:55 98.0 69 17 131/66 (87) 96 11/29/17 19:25 98.4 72 16 164/74 (104) 98 11/29/17 16:17 67 11/29/17 15:40 97.7 69 16 158/74 (102) 97 11/29/17 12:10 75 11/29/17 11:28 97.7 72 20 144/65 (91) 99 General: Alert and Oriented, No acute distress Eye: EOMI Respiratory: Non-labored respirations Cardiology: Normal rate Musculoskeletal: ROM Neurologic: Alert, Oriented, Normal sensory, Normal motor, Normal DTR's Psychiatric: Cooperative, Appropriate mood & affect Exam Comments Pleasant 87-year-old female lying in bed looks well for her age. Oriented 3. Follows motor requests, no aphasia. No temporal tenderness neck supple weakness of the right medial rectus with diplopia on left gaze. Upgaze downgaze intact. Able to look to the right without any difficulty. No ptosis noted. Pupils 3 mm sluggishly reactive. No gross facial asymmetry visual ac full tongue midline. V1 to V3 sensation intact. Strength 5 out of 5 upper lower limbs. Mild postural tremor. Reflexes symmetric gait not assessed secondary to fall risk. Objective Micro and Labs Laboratory Tests Test 11/29/17 11:59 Erythrocyte Sedimentation Rate 4 C-Reactive Protein LESS THAN 0.29 Vitamin B12 Level 376 Thyroid Stimulating Hormone 3rd Gen 3.890 Zane Bustamante MD November 30, 2017 10:20
--- NOTE | 2017-11-30 10:23 | HHI.PR ---
Subjective Remarks Pt still with the horizontal diplopia if she does not have her eye patch on Pt with continued dysphagia Objective Vitals Vital Signs Date Time Temp Pulse Resp B/P (MAP) Pulse Ox O2 Delivery O2 Flow Rate FiO2 11/30/17 08:02 98.2 68 20 140/68 (92) 98 11/30/17 04:00 57 11/30/17 03:25 98.1 62 17 129/68 (88) 99 11/30/17 00:00 88 11/29/17 23:55 98.0 69 17 131/66 (87) 96 11/29/17 19:25 98.4 72 16 164/74 (104) 98 11/29/17 16:17 67 11/29/17 15:40 97.7 69 16 158/74 (102) 97 11/29/17 12:10 75 11/29/17 11:28 97.7 72 20 144/65 (91) 99 Result Diagram: 11/29/17 0543 11/29/17 0543 Other Results Laboratory Tests Test 11/28/17 14:55 11/28/17 16:55 11/29/17 05:43 11/29/17 11:59 White Blood Count 6.4 TH/MM3 5.4 TH/MM3 Red Blood Count 5.07 MIL/MM3 5.00 MIL/MM3 Hemoglobin 14.8 GM/DL 14.4 GM/DL Hematocrit 44.5 % 42.9 % Mean Corpuscular Volume 87.8 FL 85.8 FL Mean Corpuscular Hemoglobin 29.1 PG 28.8 PG Mean Corpuscular Hemoglobin Concent 33.2 % 33.5 % Red Cell Distribution Width 14.8 % 15.1 % Platelet Count 176 TH/MM3 179 TH/MM3 Mean Platelet Volume 8.2 FL 8.4 FL Neutrophils (%) (Auto) 71.5 % 51.8 % Lymphocytes (%) (Auto) 21.2 % 33.4 % Monocytes (%) (Auto) 4.5 % 8.5 % Eosinophils (%) (Auto) 1.6 % 5.1 % Basophils (%) (Auto) 1.2 % 1.2 % Neutrophils # (Auto) 4.6 TH/MM3 2.8 TH/MM3 Lymphocytes # (Auto) 1.4 TH/MM3 1.8 TH/MM3 Monocytes # (Auto) 0.3 TH/MM3 0.5 TH/MM3 Eosinophils # (Auto) 0.1 TH/MM3 0.3 TH/MM3 Basophils # (Auto) 0.1 TH/MM3 0.1 TH/MM3 CBC Comment DIFF FINAL DIFF FINAL Differential Comment Prothrombin Time 10.7 SEC Prothromb Time International Ratio 1.1 RATIO Activated Partial Thromboplast Time 26.1 SEC Blood Urea Nitrogen 29 MG/DL 28 MG/DL Creatinine 1.42 MG/DL 1.20 MG/DL Random Glucose 111 MG/DL 96 MG/DL Total Protein 7.2 GM/DL Albumin 3.8 GM/DL Calcium Level 9.0 MG/DL 9.1 MG/DL Alkaline Phosphatase 86 U/L Aspartate Amino Transf (AST/SGOT) 34 U/L Alanine Aminotransferase (ALT/SGPT) 20 U/L Total Bilirubin 0.6 MG/DL Sodium Level 140 MEQ/L 142 MEQ/L Potassium Level 4.9 MEQ/L 3.8 MEQ/L Chloride Level 107 MEQ/L 108 MEQ/L Carbon Dioxide Level 22.0 MEQ/L 25.4 MEQ/L Anion Gap 11 MEQ/L 9 MEQ/L Estimat Glomerular Filtration Rate 35 ML/MIN 42 ML/MIN Total Creatine Kinase 93 U/L Troponin I LESS THAN 0.02 NG/ML Triglycerides Level 90 MG/DL Cholesterol Level 225 MG/DL LDL Cholesterol 150 MG/DL HDL Cholesterol 57.4 MG/DL Cholesterol/HDL Ratio 3.91 RATIO Urine Color LIGHT-YELLOW Urine Turbidity CLEAR Urine pH 5.5 Urine Specific [place] 1.010 Urine Protein NEG mg/dL Urine Glucose (UA) NEG mg/dL Urine Ketones NEG mg/dL Urine Occult Blood NEG Urine Nitrite NEG Urine Bilirubin NEG Urine Urobilinogen LESS THAN 2.0 MG/DL Urine Leukocyte Esterase MOD Urine WBC 6 /hpf Urine Squamous Epithelial Cells 1 /hpf Urine Transitional Epithelial Cells <1 /hpf Urine Hyaline Casts 2 /lpf Urine Granular Casts 2 /lpf Microscopic Urinalysis Comment CULT NOT INDICATED Erythrocyte Sedimentation Rate 4 mm/hr C-Reactive Protein LESS THAN 0.29 MG/DL Vitamin B12 Level 376 PG/ML Thyroid Stimulating Hormone 3rd Gen 3.890 uIU/ML Imaging Last Impressions Head Magnetic Resonance Angiography 11/29/17 0000 Signed Impressions: Service Date/Time: Wednesday, November 29, 2017 09:59 - CONCLUSION: No evidence of vessel truncation or aneurysm. Jimmy Webster MD Head CT 11/28/17 1429 Signed Impressions: Service Date/Time: Tuesday, November 28, 2017 15:42 - CONCLUSION: 1. Senescent changes without acute intracranial abnormality. Pérez Tovar MD Chest X-Ray 11/28/17 1429 Signed Impressions: Service Date/Time: Tuesday, November 28, 2017 14:59 - CONCLUSION: No acute disease. Daniel Grider MD Brain MRI 11/28/17 0000 Signed Impressions: Service Date/Time: Tuesday, November 28, 2017 21:21 - CONCLUSION: 1. No acute abnormality seen. 2. Mild atrophy and suspected small vessel ischemic change in the white matter. Javier Silva MD Objective Remarks General: NAD, AAOx3 ENT: Patch over left eye, weakness of the right medial rectus with diplopia on left gaze. Upward gaze and downward gaze are intact. No ptosis noted. Chest: CTA Cardiac: Regular Abd: +BS, soft ND/NT Ext: No edema A/P Problem List: (1) Diplopia ICD Codes: H53.2 - Diplopia Plan: Horizontal diplopia CN 3 palsy, right eye - Pt is an 87 y/o female with diabetes mellitus, type 2, CKD, stage 3 and severe aortic valve stenosis - Pt presented to the ED at [facility] on 11/28/17 with complaints of waking up with double vision/horizontal diplopia occurring with both eyes, open subsiding when either eyes is closed. She also felt a little bit off balance. - She saw her floor representative Dr. hCaney yesterday and was recommended to go to the ER for further evaluation. - MRI (11/28/17) --> No acute abnormality seen. Mild atrophy and suspected small vessel ischemic change in the white matter. - Patient had an outpt 2D echo this month showing moderate mitral valve stenosis and regurgitation, severe concentric LVH, severe aortic valve stenosis , normal LV function, as well as Doppler carotid ultrasound last month showing mild nonobstructive plaque so I will not repeat those studies. - She is on aspirin and statin. - Neurology was consulted, review of Dr. Bustamante's notes indicate selective involvement of the right medial rectus without pupillary involvement or any ptosis, felt to be likely related to peripheral ischemic disease secondary to chronic diabetes - MRA brain (11/29) --> No evidence of vessel truncation or aneurysm - ESR, CRP are WNL - PT recommending rehab - ST recommending pureed diet and honey thickened liquids Diabetes Mellitus, type 2 - Pt refusing SSI - Resume home dose of Glipizide - Accu checks CKD stage 3 - Monitor cr and avoid nephrotoxins. Memory loss - Pt follows with Neurology as outpatient. Dysphagia - Pt was seen by GI asn an outpt in 05/2017 and was supposed to have EGD which she has not done. - Pt was placed on pureed diet - Consult GI regarding her dysphagia. DVT prophylaxis with SCDs. (2) CN III palsy, right eye ICD Codes: H49.01 - Third [oculomotor] nerve palsy, right eye Status: Acute (3) CKD (chronic kidney disease) stage 3, GFR 30-59 ml/min ICD Codes: N18.3 - Chronic kidney disease, stage 3 (moderate) Status: Chronic (4) Diabetes mellitus type 2, noninsulin dependent ICD Codes: E11.9 - Type 2 diabetes mellitus without complications Status: Chronic (5) Aortic valve stenosis ICD Codes: I35.0 - Nonrheumatic aortic (valve) stenosis Status: Chronic Assessment and Plan Patient examined. Assessment and plan formulated with Lorie Underwood PA-C. I agree with the above. Lorie Underwood November 30, 2017 10:23 Tesfaye Butler DO December 08, 2017 00:48
--- NOTE | 2017-11-30 11:39 | PD.CONS ---
HPI History of Present Illness This is a 87 year old with diabetes mellitus, type 2, CKD, stage 3 and severe aortic valve stenosis who presented to the ED at [facility] on 11/28/17 with complaints of waking up with double vision/horizontal diplopia occurring with both eyes. pt was evaluated by neurology and this was felt to be selective involvement of the right medial rectus without pupillary involvement or any ptosis, felt to be likely related to peripheral ischemic disease secondary to chronic diabetes. GI has been consulted for Dysphagia, this is occasional, coughing and chocking episodes with eating. Was seen by ST who recommended puree diet, and honey consistency thickened. Denies nausea, vomiting, abd pain or GERD. (Aura Rodriguez) PFSH Past Medical History DM 2 CKD stage 3 memory loss moderate mitral valve stenosis and regurgitation, severe aortic valve stenosis, normal LV function glaucoma dysphagia (was supposed to have EGD several months ago but doesn't look like she did) peptic ulcer disease peripheral vascular disease subclinical hypothyroidism hyperlipidemia LVH hiatal hernia history of gait ataxia essential tremor (Aura Rodriguez) Coded Allergies: lansoprazole (Verified Allergy, Intermediate, hives, 11/28/17) naproxen (Verified Allergy, Intermediate, hives, 11/28/17) simvastatin (Verified Allergy, Intermediate, hives, 11/28/17) penicillin G (Verified Allergy, Mild, RASH, 11/28/17) Medications Current Medications Medications (Trade) Dose Ordered Sig/Casie Route Start Time Stop Time Status Last Admin (NS Flush) 2 ml UNSCH PRN IV FLUSH 11/28/17 20:45 (NS Flush) 2 ml BID IV FLUSH 11/28/17 21:00 11/30/17 08:50 (Tylenol) 650 mg Q4H PRN PO 11/28/17 20:45 (Narcan Inj) 0.4 mg UNSCH PRN IV PUSH 11/28/17 20:45 (Gris-Colace) 1 tab BID PO 11/28/17 21:00 (Milk Of Magnesia Liq) 30 ml Q12H PRN PO 11/28/17 20:45 (Senokot) 17.2 mg Q12H PRN PO 11/28/17 20:45 (Dulcolax Supp) 10 mg DAILY PRN RECTAL 11/28/17 20:45 (Lactulose Liq) 30 ml DAILY PRN PO 11/28/17 20:45 (D50w (Vial) Inj) 50 ml UNSCH PRN IV PUSH 11/28/17 20:45 (Glucagon Inj) 1 mg UNSCH PRN OTHER 11/28/17 20:45 (NovoLOG SUPPLEMENTAL SCALE) 1 ACHS SLIDING SCALE SQ 11/28/17 21:00 (Aspirin) 325 mg DAILY PO 11/29/17 09:00 11/30/17 08:49 (Tylenol) 650 mg Q4H PRN PO 11/28/17 23:45 11/29/17 00:08 (Glucotrol) 5 mg DAILY PO 11/29/17 10:45 11/30/17 08:49 Family History Non contributory Social History No alcohol No smoking No illicit drug use (Aura Rodriguez) Review of Systems Constitutional: DENIES: Weight loss Endocrine: DENIES: Polyuria Eyes: COMPLAINS OF: Double Vision Ears, nose, mouth, throat: DENIES: Hoarseness Respiratory: DENIES: Shortness of breath Cardiovascular: DENIES: Lower Extremity Edema Gastrointestinal: COMPLAINS OF: Difficulty Swallowing, DENIES: Abdominal pain, Black stools, Bloody stools, Constipation, Diarrhea, Nausea, Vomiting, Anorexia , Odynophagia, Swelling of Abdomen, Heartburn, Hematemesis Genitourinary: DENIES: Hematuria Musculoskeletal: DENIES: Neck pain Integumentary: DENIES: Jaundice Hematologic/lymphatic: DENIES: Bruising Immunologic/allergic: DENIES: Eczema Neurologic: DENIES: Abnormal gait Psychiatric: DENIES: Anxiety (Aura Rodriugez) GI Exam Vitals I&O Vital Signs Date Time Temp Pulse Resp B/P (MAP) Pulse Ox O2 Delivery O2 Flow Rate FiO2 11/30/17 09:20 64 11/30/17 08:02 98.2 68 20 140/68 (92) 98 11/30/17 04:00 57 11/30/17 03:25 98.1 62 17 129/68 (88) 99 11/30/17 00:00 88 11/29/17 23:55 98.0 69 17 131/66 (87) 96 11/29/17 19:25 98.4 72 16 164/74 (104) 98 11/29/17 16:17 67 11/29/17 15:40 97.7 69 16 158/74 (102) 97 11/29/17 12:10 75 I/O 11/29/17 11/29/17 11/29/17 11/30/17 11/30/17 11/30/17 07:00 15:00 23:00 07:00 15:00 23:00 Intake Total 420 ml 480 ml Balance 420 ml 480 ml Intake Oral 420 ml 480 ml # Voids 2 1 Imaging Last Impressions Head Magnetic Resonance Angiography 11/29/17 0000 Signed Impressions: Service Date/Time: Wednesday, November 29, 2017 09:59 - CONCLUSION: No evidence of vessel truncation or aneurysm. Jimmy Webster MD Head CT 11/28/17 1429 Signed Impressions: Service Date/Time: Tuesday, November 28, 2017 15:42 - CONCLUSION: 1. Senescent changes without acute intracranial abnormality. Pérez Tovar MD Chest X-Ray 11/28/171428 Signed Impressions: Service Date/Time: Tuesday, November 28, 2017 14:59 - CONCLUSION: No acute disease. Daniel Grider MD Brain MRI 11/28/17 0000 Signed Impressions: Service Date/Time: Tuesday, November 28, 2017 21:21 - CONCLUSION: 1. No acute abnormality seen. 2. Mild atrophy and suspected small vessel ischemic change in the white matter. Javier Silva MD Laboratory Test 11/29/17 11:59 Erythrocyte Sedimentation Rate 4 mm/hr C-Reactive Protein LESS THAN 0.29 MG/DL Vitamin B12 Level 376 PG/ML Thyroid Stimulating Hormone 3rd Gen 3.890 uIU/ML Physical Examination HEENT: ; normocephalic; atraumatic; no jaundice. Patch on left eye CHEST: Chest is clear to auscultation and percussion. CARDIAC: Regular rate and rhythm with no murmur gallop or rubs. ABDOMEN: Soft, nondistended, nontender; no hepatosplenomegaly; bowel sounds are present in all four quadrants. EXTREMITIES: No clubbing, cyanosis, or edema. SKIN: Normal; no rash; no jaundice. [employer] G[employer]IC: No focal deficits; alert and oriented times three. (Aura Rodriguez) Assessment and Plan Plan - Dysphagia- This is occasional, coughing and chocking episodes with eating. Was seen by ST who recommended puree diet, and honey consistency thickened. Denies nausea, vomiting, abd pain or GERD. - Possible TIA- presented to the ED at [facility] on 11/28/17 with complaints of waking up with double vision/horizontal diplopia occurring with both eyes. pt was evaluated by neurology and this was felt to be selective involvement of the right medial rectus without pupillary involvement or any ptosis, felt to be likely related to peripheral ischemic disease secondary to chronic diabetes. - diabetes mellitus, type 2, CKD, stage 3 and severe aortic valve stenosis per attending Plan: - Diet per dietary recommendation - EGD/dill in the am - NPO mn - Pt seen and examined by Dr. Ch and myself and this note is written on her behalf. (Aura Rodriguez) Physician Comments SEEN, EXAMINED AGREE WITH ABOVE (Tisha Ch MD) Aura Rodriguez November 30, 2017 11:39 Tisha Ch MD November 30, 2017 20:12
--- NOTE | 2017-11-30 12:02 | HHI.PR ---
Review/Management Diagnosis/Plan: (1) CN III palsy, right eye ICD Codes: H49.01 - Third [oculomotor] nerve palsy, right eye Status: Acute Plan: Selective involvement of the right medial rectus without pupillary involvement or any ptosis MRI brain scan reviewed no brainstem lesions noted. This is likely related to peripheral ischemic disease secondary to chronic diabetes and hypertension. A tiny infarct affecting the medial longitudinal fasciculus cannot be entirely excluded and a repeat MRI in the future may be necessary if her symptoms do not improve Allergies to statin Recommendations Right medial rectus weakness improved Check ESR CRP-normal PT evaluation Discharge planning from neurology and outpatient follow-up She may require inpatient rehabilitation as per PT (2) Diabetes mellitus type 2, noninsulin dependent ICD Codes: E11.9 - Type 2 diabetes mellitus without complications Status: Chronic Plan: Blood sugar control per medical (3) CKD (chronic kidney disease) stage 3, GFR 30-59 ml/min ICD Codes: N18.3 - Chronic kidney disease, stage 3 (moderate) Status: Chronic Plan: Blood pressure control her medical (4) Hyperlipidemia ICD Codes: E78.5 - Hyperlipidemia, unspecified Status: Chronic Plan: LDL less than 100 Subjective Subjective Comments No acute events reported No headache No chest pain No dyspnea Active Medications Current Medications Medications (Trade) Dose Ordered Sig/Casie Route Start Time Stop Time Status Last Admin (NS Flush) 2 ml UNSCH PRN IV FLUSH 11/28/17 20:45 (NS Flush) 2 ml BID IV FLUSH 11/28/17 21:00 11/30/17 08:50 (Tylenol) 650 mg Q4H PRN PO 11/28/17 20:45 (Narcan Inj) 0.4 mg UNSCH PRN IV PUSH 11/28/17 20:45 (Gris-Colace) 1 tab BID PO 11/28/17 21:00 (Milk Of Magnesia Liq) 30 ml Q12H PRN PO 11/28/17 20:45 (Senokot) 17.2 mg Q12H PRN PO 11/28/17 20:45 (Dulcolax Supp) 10 mg DAILY PRN RECTAL 11/28/17 20:45 (Lactulose Liq) 30 ml DAILY PRN PO 11/28/17 20:45 (D50w (Vial) Inj) 50 ml UNSCH PRN IV PUSH 11/28/17 20:45 (Glucagon Inj) 1 mg UNSCH PRN OTHER 11/28/17 20:45 (NovoLOG SUPPLEMENTAL SCALE) 1 ACHS SLIDING SCALE SQ 11/28/17 21:00 (Aspirin) 325 mg DAILY PO 11/29/17 09:00 11/30/17 08:49 (Tylenol) 650 mg Q4H PRN PO 11/28/17 23:45 11/29/17 00:08 (Glucotrol) 5 mg DAILY PO 11/29/17 10:45 11/30/17 08:49 Allergies Allergies Coded Allergies lansoprazole (Verified Allergy, Intermediate, hives, 11/28/17) naproxen (Verified Allergy, Intermediate, hives, 11/28/17) simvastatin (Verified Allergy, Intermediate, hives, 11/28/17) penicillin G (Verified Allergy, Mild, RASH, 11/28/17) Review of Systems All other ROS: ROS reviewed as documented in chart Exam I&O / VS Vital Signs Date Time Temp Pulse Resp B/P (MAP) Pulse Ox O2 Delivery O2 Flow Rate FiO2 11/30/17 09:20 64 11/30/17 08:02 98.2 68 20 140/68 (92) 98 11/30/17 04:00 57 11/30/17 03:25 98.1 62 17 129/68 (88) 99 11/30/17 00:00 88 11/29/17 23:55 98.0 69 17 131/66 (87) 96 11/29/17 19:25 98.4 72 16 164/74 (104) 98 11/29/17 16:17 67 11/29/17 15:40 97.7 69 16 158/74 (102) 97 11/29/17 12:10 75 General: Alert and Oriented, No acute distress Eye: EOMI Respiratory: Non-labored respirations Cardiology: Normal rate Musculoskeletal: ROM Neurologic: Alert, Oriented, Normal sensory, Normal motor, Normal DTR's Psychiatric: Cooperative, Appropriate mood & affect Exam Comments Alert oriented 3. Follows motor requests, no aphasia. No temporal tenderness neck supple weakness of the right medial rectus with diplopia on left gaze- improved. Upgaze downgaze intact. Able to look to the right without any difficulty. No ptosis noted. Pupils 3 mm sluggishly reactive. No gross facial asymmetry visual ac full tongue midline. V1 to V3 sensation intact. Strength 5 out of 5 upper lower limbs. Mild postural tremor. Reflexes symmetric gait not assessed secondary to fall risk. Zane Bustamante MD November 30, 2017 12:02
[2017-11-30] MEDS ORDERED: METOPROLOL TARTRATE 25 MG TAB PO PRN (13:00)
[2017-11-30] MEDS ORDERED: POVIDONE IODINE 5% (ANTISEPSIS KIT) 4 APPLICATIONS EACH NARE PRN (13:00)
[2017-11-30] MEDS ORDERED: LACTATED RINGER'S 1000 ML IV PRN (13:00)
[2017-11-30] MEDS ORDERED: CHLORHEXIDINE GLUCONATE 2 % 1 PACK (2 CLOTHS) TOPICAL PRN (13:00)
[2017-11-30] MEDS ORDERED: SODIUM CHLORID 0.9% 500 ML IV PRN (13:00)
[2017-12-01 00:53] VITALS: BP 108/55; PULSE 97; RESP 18; TEMP 98; O2SAT 97
[2017-12-01 03:58] VITALS: BP 101/59; PULSE 77; RESP 18; TEMP 97.8; O2SAT 99
[2017-12-01] MEDS: INSULIN ASPART SUPPLEMENTAL SCALE SQ SCH ×4 (07:54→20:36)
[2017-12-01] MEDS: glipiZIDE 5 MG TAB PO SCH ×2 (07:55→17:14)
[2017-12-01] MEDS: ASPIRIN 325 MG TAB PO SCH (08:12)
[2017-12-01] MEDS: DOCUSATE SODIUM 50 MG/SENNA 8.6 MG TAB PO SCH ×2 (08:12→20:36)
[2017-12-01 08:13] VITALS: BP 123/67; PULSE 81; RESP 18; TEMP 97.7; O2SAT 100
[2017-12-01] MEDS: SODIUM CHLORIDE 0.9% FLUSH 10 ML FLUSH IV FLUSH SCH ×2 (08:28→20:36)
[2017-12-01] MEDS: BRIMONIDINE TARTRATE 0.2% OPHT SOLN 5 ML BTL EACH EYE SCH ×2 (08:28→20:36)
--- NOTE | 2017-12-01 10:24 | HHI.PR ---
Review/Management Diagnosis/Plan: (1) CN III palsy, right eye ICD Codes: H49.01 - Third [oculomotor] nerve palsy, right eye Status: Acute Plan: Selective involvement of the right medial rectus without pupillary involvement or any ptosis MRI brain scan reviewed no brainstem lesions noted. This is likely related to peripheral ischemic disease secondary to chronic diabetes and hypertension. A tiny infarct affecting the medial longitudinal fasciculus cannot be entirely excluded and a repeat MRI in the future may be necessary if her symptoms do not improve Allergies to statin Recommendations Right medial rectus weakness significantly improved Check ESR CRP-normal PT evaluation Discharge planning from neurology and outpatient follow-up She may require inpatient rehabilitation as per PT; patient declines inpatient rehab and wants to go home to her cats may obtain outpatient PT (2) Diabetes mellitus type 2, noninsulin dependent ICD Codes: E11.9 - Type 2 diabetes mellitus without complications Status: Chronic Plan: Blood sugar control per medical (3) CKD (chronic kidney disease) stage 3, GFR 30-59 ml/min ICD Codes: N18.3 - Chronic kidney disease, stage 3 (moderate) Status: Chronic Plan: Blood pressure control her medical (4) Hyperlipidemia ICD Codes: E78.5 - Hyperlipidemia, unspecified Status: Chronic Plan: LDL less than 100 Subjective Subjective Comments No acute events reported No headache No chest pain No dyspnea Active Medications Current Medications Medications (Trade) Dose Ordered Sig/Casie Route Start Time Stop Time Status Last Admin (NS Flush) 2 ml UNSCH PRN IV FLUSH 11/28/17 20:45 (NS Flush) 2 ml BID IV FLUSH 11/28/17 21:00 12/01/17 08:28 (Tylenol) 650 mg Q4H PRN PO 11/28/17 20:45 (Narcan Inj) 0.4 mg UNSCH PRN IV PUSH 11/28/17 20:45 (Gris-Colace) 1 tab BID PO 11/28/17 21:00 (Milk Of Magnesia Liq) 30 ml Q12H PRN PO 11/28/17 20:45 (Senokot) 17.2 mg Q12H PRN PO 11/28/17 20:45 (Dulcolax Supp) 10 mg DAILY PRN RECTAL 11/28/17 20:45 (Lactulose Liq) 30 ml DAILY PRN PO 11/28/17 20:45 (D50w (Vial) Inj) 50 ml UNSCH PRN IV PUSH 11/28/17 20:45 (Glucagon Inj) 1 mg UNSCH PRN OTHER 11/28/17 20:45 (NovoLOG SUPPLEMENTAL SCALE) 1 ACHS SLIDING SCALE SQ 11/28/17 21:00 (Aspirin) 325 mg DAILY PO 11/29/17 09:00 11/30/17 08:49 (Tylenol) 650 mg Q4H PRN PO 11/28/17 23:45 11/29/17 00:08 (Glucotrol) 5 mg DAILY PO 11/29/17 10:45 11/30/17 08:49 Lactated Ringer's 1,000 ml @ 30 mls/hr Q24H PRN IV 11/30/17 13:00 12/03/17 12:59 Sodium Chloride 500 ml @ 30 mls/hr [id number] PRN IV 11/30/17 13:00 12/03/17 12:59 (Lopressor) 25 mg DOCUMENT IMAGING SPECIALIST PRN PO 11/30/17 13:00 12/03/17 12:59 (Betadine 5% Antisepsis Kit) 1 applic DOCUMENT IMAGING SPECIALIST PRN EACH NARE 11/30/17 13:00 12/03/17 12:59 (Chlorhexidine 2% Cloth) 3 pack DOCUMENT IMAGING SPECIALIST PRN TOPICAL 11/30/17 13:00 12/03/17 12:59 (Alphagan 0.2% Opth Soln) 1 drop BID EACH EYE 12/01/17 09:00 12/01/17 08:28 Allergies Allergies Coded Allergies lansoprazole (Verified Allergy, Intermediate, hives, 11/28/17) naproxen (Verified Allergy, Intermediate, hives, 11/28/17) simvastatin (Verified Allergy, Intermediate, hives, 11/28/17) penicillin G (Verified Allergy, Mild, RASH, 11/28/17) Review of Systems All other ROS: ROS reviewed as documented in chart Exam I&O / VS Vital Signs Date Time Temp Pulse Resp B/P (MAP) Pulse Ox O2 Delivery O2 Flow Rate FiO2 12/01/17 08:13 97.7 81 18 123/67 (85) 100 12/01/17 03:58 97.8 77 18 101/59 (73) 99 12/01/17 00:53 98.0 97 18 108/55 (72) 97 11/30/17 20:33 98.2 83 18 147/79 (101) 96 11/30/17 17:08 98.2 62 20 155/68 (97) 98 11/30/17 12:22 98.2 74 20 170/74 (106) 98 General: Alert and Oriented, No acute distress Eye: EOMI Respiratory: Non-labored respirations Cardiology: Normal rate Musculoskeletal: ROM Neurologic: Alert, Oriented, Normal sensory, Normal motor, Normal DTR's Psychiatric: Cooperative, Appropriate mood & affect Exam Comments Alert oriented 3. Follows motor requests, no aphasia. weakness of the right medial rectus with diplopia on left gaze-significantly improved she is now able to have the right eye cross the midline on left gaze upgaze downgaze intact. Able to look to the right without any difficulty. No ptosis noted. Pupils 3 mm sluggishly reactive. No gross facial asymmetry visual ac full tongue midline. V1 to V3 sensation intact. Strength 5 out of 5 upper lower limbs. Mild postural tremor. Reflexes symmetric gait not assessed secondary to fall risk. Zane Bustamante MD December 01, 2017 10:24
--- NOTE | 2017-12-01 10:59 | HHI.PR ---
Subjective Remarks Pt planned for EGD today She is anxious to go home. She does not want to pursue SNF placement for continued rehab Objective Vitals Vital Signs Date Time Temp Pulse Resp B/P (MAP) Pulse Ox O2 Delivery O2 Flow Rate FiO2 12/01/17 08:13 97.7 81 18 123/67 (85) 100 12/01/17 03:58 97.8 77 18 101/59 (73) 99 12/01/17 00:53 98.0 97 18 108/55 (72) 97 11/30/17 20:33 98.2 83 18 147/79 (101) 96 11/30/17 17:08 98.2 62 20 155/68 (97) 98 11/30/17 12:22 98.2 74 20 170/74 (106) 98 Result Diagram: 11/29/17 0543 11/29/17 0543 Other Results Laboratory Tests Test 11/29/17 11:59 Erythrocyte Sedimentation Rate 4 mm/hr C-Reactive Protein LESS THAN 0.29 MG/DL Vitamin B12 Level 376 PG/ML Thyroid Stimulating Hormone 3rd Gen 3.890 uIU/ML Imaging Last Impressions Head Magnetic Resonance Angiography 11/29/17 0000 Signed Impressions: Service Date/Time: Wednesday, November 29, 2017 09:59 - CONCLUSION: No evidence of vessel truncation or aneurysm. Jimmy Webster MD Head CT 11/28/17 1429 Signed Impressions: Service Date/Time: Tuesday, November 28, 2017 15:42 - CONCLUSION: 1. Senescent changes without acute intracranial abnormality. Pérez Tovar MD Chest X-Ray 11/28/17 1429 Signed Impressions: Service Date/Time: Tuesday, November 28, 2017 14:59 - CONCLUSION: No acute disease. Daniel Grider MD Brain MRI 11/28/17 0000 Signed Impressions: Service Date/Time: Tuesday, November 28, 2017 21:21 - CONCLUSION: 1. No acute abnormality seen. 2. Mild atrophy and suspected small vessel ischemic change in the white matter. Javier Silva MD Objective Remarks General: NAD, AAOx3 ENT: Patch over right eye Chest: CTA Cardiac: Regular Abd: +BS, soft ND/NT Ext: No edema A/P Problem List: (1) Diplopia ICD Codes: H53.2 - Diplopia Plan: Horizontal diplopia CN 3 palsy, right eye - Pt is an 87 y/o female with diabetes mellitus, type 2, CKD, stage 3 and severe aortic valve stenosis - Pt presented to the ED at [facility] on 11/28/17 with complaints of waking up with double vision/horizontal diplopia occurring with both eyes, open subsiding when either eyes is closed. She also felt a little bit off balance. - She saw her machine preservative filler Dr. Chaney yesterday and was recommended to go to the ER for further evaluation. - MRI (11/28/17) --> No acute abnormality seen. Mild atrophy and suspected small vessel ischemic change in the white matter. - Patient had an outpt 2D echo this month showing moderate mitral valve stenosis and regurgitation, severe concentric LVH, severe aortic valve stenosis , normal LV function, as well as Doppler carotid ultrasound last month showing mild nonobstructive plaque so I will not repeat those studies. - She is on aspirin and statin. - Neurology was consulted, review of Dr. Bustamante's notes indicate selective involvement of the right medial rectus without pupillary involvement or any ptosis, felt to be likely related to peripheral ischemic disease secondary to chronic diabetes - MRA brain (11/29) --> No evidence of vessel truncation or aneurysm - ESR, CRP are WNL - PT recommending rehab but pt refusing - ST recommending pureed diet and honey thickened liquids - Pt refusing SNF. We will arrange for HHC/PT/ST and anticipate d/c tomorrow Diabetes Mellitus, type 2 - Pt refusing SSI - Resumed home dose of Glipizide - Accu checks CKD stage 3 - Monitor cr and avoid nephrotoxins. Memory loss - Pt follows with Neurology as outpatient. Dysphagia - Pt was seen by GI as an outpt in 05/2017 and was supposed to have EGD which she has not done. - Pt was placed on pureed diet - Appreciate Consult from GI regarding her dysphagia. - EGD with dilation (12/01/17) --> Esophageal stricture both proximal and distal s/p dilation, erosive gastritis, erosive duodenitis - Biopsies are pending - GI recommending to avoid NSAIDs and aspirin and they are holding off at this point on starting proton pump inhibitors due to a history of allergy with hives to lansoprazole - ST requested to re-evaluate tomorrow DVT prophylaxis with SCDs. (2) CN III palsy, right eye ICD Codes: H49.01 - Third [oculomotor] nerve palsy, right eye Status: Acute (3) CKD (chronic kidney disease) stage 3, GFR 30-59 ml/min ICD Codes: N18.3 - Chronic kidney disease, stage 3 (moderate) Status: Chronic (4) Diabetes mellitus type 2, noninsulin dependent ICD Codes: E11.9 - Type 2 diabetes mellitus without complications Status: Chronic (5) Aortic valve stenosis ICD Codes: I35.0 - Nonrheumatic aortic (valve) stenosis Status: Chronic Assessment and Plan Patient examined. Assessment and plan formulated with Lorie Underwood PA-C. I agree with the above. Lorie Underwood December 01, 2017 10:59 Tesfaye Butler DO December 08, 2017 00:49
[2017-12-01] MEDS ORDERED: PHENYLEPH/NS 1000 MCG/10 ML SYR IV ONE (12:00)
[2017-12-01] MEDS ORDERED: PROPOFOL 200 MG/20 ML AMP IV ONE (12:00)
[2017-12-01] MEDS ORDERED: LIDOCAINE HCL 1% PF 5 ML SYRINGE OTHER ONE (12:00)
[2017-12-01] MEDS ORDERED: ONDANSETRON HCL 4 MG/2 ML VIAL IV ONE (12:00)
--- NOTE | 2017-12-01 14:39 | PD.PROCEDR ---
GI Procedure PROCEDURE PERFORMED EGD with biopsies and dilation INDICATION FOR PROCEDURE Dysphagia PROCEDURE: The procedure, risks and benefits were discussed with Patient/POA and informed consent was obtained. Anesthesia sedated Patient with Diprivan. Patient was placed in the left lateral decubitus position. EGD: The Pentax videoscope was introduced through the oropharynx and advanced to the second portion of the duodenum under direct visualization. Retroflexion was performed in the stomach. FINDINGS: The esophagus there was a proximal esophageal stricture probable web and a distal esophageal stricture at the level of the GE junction benign-appearing etiology unclear the esophagus was dilated with a savory dilator over a guidewire the dilator was size 15 postdilatation view reveals mild to moderate rent no perforation noted then distal esophageal biopsies were taken for further evaluation Stomach there was antral mucosal erythema with some nodularity and mild erosions this was biopsied the rest of the stomach was unremarkable The duodenum this to appear to be erythemic with some erosions specifically in the bulb and to a lesser extent in the descending duodenum biopsies were also taken ESTIMATED BLOOD LOSS: None SPECIMENS REMOVED: Esophageal, gastric, duodenal biopsies COMPLICATIONS: None IMPRESSION: Esophageal stricture both proximal and distal Erosive gastritis Erosive duodenitis PLAN: Await biopsies Avoid NSAIDs and aspirin I will hold off at this point on starting proton pump inhibitors due to a history of allergy with hives to lansoprazole Continue present supportive care Isidro Villalta MD December 01, 2017 14:39
--- NOTE | 2017-12-01 15:37 | HHI.FF ---
Face to Face Verification Diagnosis: (1) Diplopia (2) CN III palsy, right eye (3) Diabetes mellitus type 2, noninsulin dependent (4) CKD (chronic kidney disease) stage 3, GFR 30-59 ml/min (5) Diabetes mellitus Physical Therapy Order: Evaluate and Treat, Improve ambulation, Strength and gait training Speech Therapy Order: To Improve: Swallowing Home Health Nursing Order: Medical education Signs/symptoms of disease process Diabetic education Medication education-adverse effect Nursing assessment with vital signs [employer] Receiver Order: To Evaluate: Living conditions/environment, Support services Order: To Provide: Long range planning, Community services I have seen patient Patricia Martinez on 12/01/17. My clinical findings support the need for the requested home health care services because: Ltd mobility - disease progression Deconditioned w/ increased weakness Med compliance is questionable Limited ability to care for self Need for psychosocial assistance Impaired cognition/judgement High risk of falls I certify that my clinical findings support that this patient is homebound because: Impaired cognitive ability/safety Unsteady gait/balance Unsafe to leave home unassisted Need for psychosocial assistance Unable to use public transportation Tesfaye Butler DO December 01, 2017 15:37
[2017-12-01 15:58] VITALS: BP 174/81; PULSE 75; RESP 18; TEMP 97.8; O2SAT 96
[2017-12-01 20:12] VITALS: BP 134/62; PULSE 86; RESP 16; TEMP 98.3; O2SAT 98
[2017-12-01] MEDS ORDERED: FAMOTIDINE 20 MG TAB PO SCH (21:00)
[2017-12-02 00:49] VITALS: BP 126/66; PULSE 82; RESP 16; TEMP 97.8; O2SAT 98
[2017-12-02 05:05] VITALS: BP 132/74; PULSE 76; RESP 18; TEMP 98.5; O2SAT 98
[2017-12-02] MEDS: glipiZIDE 5 MG TAB PO SCH (06:52)
[2017-12-02 07:18] VITALS: BP 108/57; PULSE 90; RESP 20; TEMP 97.7; O2SAT 98
[2017-12-02] MEDS ORDERED: FAMOTIDINE 20 MG TAB PO SCH (09:00)
[2017-12-02] MEDS: INSULIN ASPART SUPPLEMENTAL SCALE SQ SCH (09:23)
--- NOTE | 2017-12-02 10:36 | HHI.PR ---
Review/Management Diagnosis/Plan: (1) CN III palsy, right eye ICD Codes: H49.01 - Third [oculomotor] nerve palsy, right eye Status: Acute Plan: Selective involvement of the right medial rectus without pupillary involvement or any ptosis MRI brain - no brainstem lesions noted. This is likely related to peripheral ischemic disease secondary to chronic diabetes and hypertension. A tiny infarct affecting the medial longitudinal fasciculus cannot be entirely excluded and a repeat MRI in the future may be necessary if her symptoms do not improve Allergic to statin Recommendations Right medial rectus weakness significantly improved ESR CRP-normal PT evaluation Discharge planning from neurology and outpatient follow-up patient declined inpatient rehab and wants to go home to her cats may obtain outpatient PT (2) Diabetes mellitus type 2, noninsulin dependent ICD Codes: E11.9 - Type 2 diabetes mellitus without complications Status: Chronic Plan: Blood sugar control per medical (3) CKD (chronic kidney disease) stage 3, GFR 30-59 ml/min ICD Codes: N18.3 - Chronic kidney disease, stage 3 (moderate) Status: Chronic Plan: Blood pressure control per medical (4) Hyperlipidemia ICD Codes: E78.5 - Hyperlipidemia, unspecified Status: Chronic Plan: goal LDL less than 100 Subjective Subjective Comments No acute events reported No headache No chest pain No dyspnea continues to note blurred and double vision has right eye covered and finds this helps Active Medications Current Medications Medications (Trade) Dose Ordered Sig/Casie Route Start Time Stop Time Status Last Admin (NS Flush) 2 ml UNSCH PRN IV FLUSH 11/28/17 20:45 (NS Flush) 2 ml BID IV FLUSH 11/28/17 21:00 12/01/17 20:36 (Tylenol) 650 mg Q4H PRN PO 11/28/17 20:45 (Narcan Inj) 0.4 mg UNSCH PRN IV PUSH 11/28/17 20:45 (Gris-Colace) 1 tab BID PO 11/28/17 21:00 12/01/17 20:36 (Milk Of Magnesia Liq) 30 ml Q12H PRN PO 11/28/17 20:45 (Senokot) 17.2 mg Q12H PRN PO 11/28/17 20:45 (Dulcolax Supp) 10 mg DAILY PRN RECTAL 11/28/17 20:45 (Lactulose Liq) 30 ml DAILY PRN PO 11/28/17 20:45 (D50w (Vial) Inj) 50 ml UNSCH PRN IV PUSH 11/28/17 20:45 (Glucagon Inj) 1 mg UNSCH PRN OTHER 11/28/17 20:45 (NovoLOG SUPPLEMENTAL SCALE) 1 ACHS SLIDING SCALE SQ 11/28/17 21:00 (Tylenol) 650 mg Q4H PRN PO 11/28/17 23:45 11/29/17 00:08 Lactated Ringer's 1,000 ml @ 30 mls/hr Q24H PRN IV 11/30/17 13:00 12/03/17 12:59 Sodium Chloride 500 ml @ 30 mls/hr [id number] PRN IV 11/30/17 13:00 12/03/17 12:59 (Lopressor) 25 mg PROJECT MANAGEMENT ADVISOR PRN PO 11/30/17 13:00 12/03/17 12:59 (Betadine 5% Antisepsis Kit) 1 applic PROJECT MANAGEMENT ADVISOR PRN EACH NARE 11/30/17 13:00 12/03/17 12:59 (Chlorhexidine 2% Cloth) 3 pack PROJECT MANAGEMENT ADVISOR PRN TOPICAL 11/30/17 13:00 12/03/17 12:59 (Alphagan 0.2% Opth Soln) 1 drop BID EACH EYE 12/01/17 09:00 12/01/17 20:36 (Glucotrol) 5 mg BIDAC PO 12/01/17 16:00 12/02/17 06:52 (Pepcid) 10 mg BID PO 12/02/17 09:00 Allergies Allergies Coded Allergies lansoprazole (Verified Allergy, Intermediate, hives, 11/28/17) naproxen (Verified Allergy, Intermediate, hives, 11/28/17) simvastatin (Verified Allergy, Intermediate, hives, 11/28/17) penicillin G (Verified Allergy, Mild, RASH, 11/28/17) Review of Systems All other ROS: ROS reviewed as documented in chart Exam I&O / VS Vital Signs Date Time Temp Pulse Resp B/P (MAP) Pulse Ox O2 Delivery O2 Flow Rate FiO2 12/02/17 07:18 97.7 90 20 108/57 (74) 98 12/02/17 05:05 98.5 76 18 132/74 (93) 98 12/02/17 00:49 97.8 82 16 126/66 (86) 98 12/01/17 20:12 98.3 86 16 134/62 (86) 98 12/01/17 15:58 97.8 75 18 174/81 (112) 96 12/01/17 14:37 97.9 66 14 143/67 (92) 100 General: Alert and Oriented, No acute distress Respiratory: Non-labored respirations Cardiology: Normal rate Musculoskeletal: ROM Neurologic: Alert, Oriented, Normal sensory, Normal motor, Normal DTR's Psychiatric: Cooperative, Appropriate mood & affect Exam Comments Alert and oriented 3. weakness of the right medial rectus with diplopia on left gaze-significantly improved she is now able to have the right eye cross the midline on left gaze upgaze and downgaze intact. Able to look to the right without any difficulty. No ptosis noted. PERRL. No facial asymmetry, Strength 5 out of 5 upper lower limbs. Mild postural tremor. gait withheld Rosie Arias December 02, 2017 10:36
[2017-12-02] MEDS: SODIUM CHLORIDE 0.9% FLUSH 10 ML FLUSH IV FLUSH SCH (10:37)
[2017-12-02] MEDS: BRIMONIDINE TARTRATE 0.2% OPHT SOLN 5 ML BTL EACH EYE SCH (10:37)
[2017-12-02] MEDS: DOCUSATE SODIUM 50 MG/SENNA 8.6 MG TAB PO SCH (10:38)
[2017-12-02 10:47] VITALS: BP 111/54; PULSE 64; RESP 20; TEMP 97.4; O2SAT 99
[2017-12-02] MEDS ORDERED: FAMO20TA2 PO (11:19)
--- NOTE | 2017-12-02 11:21 | HHI.DCPOC ---
Discharge Care Plan Diagnosis: (1) Erosive gastritis (2) CN III palsy, right eye (3) Diabetes mellitus (4) Hyperlipidemia (5) CKD (chronic kidney disease) stage 3, GFR 30-59 ml/min (6) Aortic valve stenosis (7) Diplopia Goals to Promote Your Health * To prevent worsening of your condition and complications * To maintain your health at the optimal level Directions to Meet Your Goals Take your medications as prescribed Follow your dietary instruction Follow activity as directed Keep your appointments as scheduled Take your immunizations and boosters as scheduled If your symptoms worsen call your PCP, if no PCP go to Urgent Care Center or Emergency Room Smoking is Dangerous to Your Health. Avoid second hand smoke Call the 24-hour hour crisis hotline for domestic abuse at Lorie Underwood December 02, 2017 11:21 Tesfaye Butler DO December 08, 2017 00:50
--- NOTE | 2017-12-02 11:22 | HHI.DS ---
Discharge Summary Admission Date November 28, 2017 at 18:11 Discharge Date: December 02, 2017 Admitting Diagnosis TIA (1) Diplopia Diagnosis: Principal ICD Codes: H53.2 - Diplopia (2) CN III palsy, right eye Diagnosis: Principal ICD Codes: H49.01 - Third [oculomotor] nerve palsy, right eye Status: Acute (3) CKD (chronic kidney disease) stage 3, GFR 30-59 ml/min Diagnosis: Secondary ICD Codes: N18.3 - Chronic kidney disease, stage 3 (moderate) Status: Chronic (4) Diabetes mellitus type 2, noninsulin dependent Diagnosis: Secondary ICD Codes: E11.9 - Type 2 diabetes mellitus without complications Status: Chronic (5) Aortic valve stenosis Diagnosis: Secondary ICD Codes: I35.0 - Nonrheumatic aortic (valve) stenosis Status: Chronic (6) Dysphagia Diagnosis: Secondary ICD Codes: R13.10 - Dysphagia, unspecified (7) Erosive gastritis Diagnosis: Secondary ICD Codes: K29.60 - Other gastritis without bleeding Consultants Dr. Zane Bustamante - Neurology Brief History Very pleasant 87yo female with PMH of type 2 DM severe aortic stenosis, CKD presents to ED for 1 day history of binocular and horizontal diplopia. 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 Chaney) who noticed that patient could not move her right eye medially. After discussion with PCP, patient was sent to ER for evaluation. Patient states the double vision goes away if she covers either eye. It is worse when she looks to her left. She denies speech problems, paresthesias, weakness, headache. Symptoms moderate. She does endorse some dysequilibrium today which she relates to the vision problem. CBC/BMP: 11/29/17 0543 11/29/17 0543 Significant Findings Laboratory Tests Test 11/29/17 11:59 Thyroid Stimulating Hormone 3rd Gen 3.890 uIU/ML (0.358-3.740) Imaging Last Impressions Head Magnetic Resonance Angiography 11/29/17 0000 Signed Impressions: Service Date/Time: Wednesday, November 29, 2017 09:59 - CONCLUSION: No evidence of vessel truncation or aneurysm. Jimmy Webster MD Head CT 11/28/17 1429 Signed Impressions: Service Date/Time: Tuesday, November 28, 2017 15:42 - CONCLUSION: 1. Senescent changes without acute intracranial abnormality. Pérez Tovar MD Chest X-Ray 11/28/17 1429 Signed Impressions: Service Date/Time: Tuesday, November 28, 2017 14:59 - CONCLUSION: No acute disease. Daniel Grider MD Brain MRI 11/28/17 0000 Signed Impressions: Service Date/Time: Tuesday, November 28, 2017 21:21 - CONCLUSION: 1. No acute abnormality seen. 2. Mild atrophy and suspected small vessel ischemic change in the white matter. Javier Silva MD PE at Discharge General: NAD, AAOx3 ENT: Patch over right eye Chest: CTA Cardiac: Regular Abd: +BS, soft ND/NT Ext: No edema Hospital Course Horizontal diplopia CN 3 palsy, right eye - Pt is an 87 y/o female with diabetes mellitus, type 2, CKD, stage 3 and severe aortic valve stenosis. Pt presented to the ED at [facility] on 11/28/17 with complaints of waking up with double vision/horizontal diplopia occurring with both eyes, open subsiding when either eyes is closed. She also felt a little bit off balance. She saw her melter supervisor Dr. Chaney yesterday and was recommended to go to the ER for further evaluation. MRI (11/28/17) --> No acute abnormality seen. Mild atrophy and suspected small vessel ischemic change in the white matter. Patient had an outpt 2D echo this month showing moderate mitral valve stenosis and regurgitation, severe concentric LVH, severe aortic valve stenosis, normal LV function, as well as Doppler carotid ultrasound last month showing mild nonobstructive plaque so I will not repeat those studies. She is on aspirin and statin. Neurology was consulted, review of Dr. Bustamante's notes indicate selective involvement of the right medial rectus without pupillary involvement or any ptosis, felt to be likely related to peripheral ischemic disease secondary to chronic diabetes. MRA brain (11/29) --> No evidence of vessel truncation or aneurysm. ESR, CRP are WNL. PT initially recommended rehab but pt refused. On the day of discharge she did have improvement with PT and recommended for HHC/PT. Pt will followup with her PCP, Dr. Hodge, in [address] Gabriel in 2 weeks. Diabetes Mellitus, type 2 - Pt refused SSI. Resumed home dose of Glipizide which will be continued at discharge. Accu checks CKD stage 3 - Stable renal function. Memory loss - Pt follows with Neurology as outpatient. Dysphagia - Pt was seen by GI as an outpt in 05/2017 and was supposed to have EGD which she has not done. Pt was placed on pureed diet by ST with nectar thickened liquids. GI was Consulted regarding her dysphagia. EGD with dilation (12/01/17) - -> Esophageal stricture both proximal and distal s/p dilation, erosive gastritis , erosive duodenitis. Biopsies are pending. GI recommending to avoid NSAIDs and aspirin and they are holding off at this point on starting proton pump inhibitors due to a history of allergy with hives to lansoprazole. Pt was started on Pepcid 10mg po BID and this will be continued at discharge. Pt will need to followup with Dr. Villalta in [address] re-evaluated on the day of discharge and her swallowing was improved and recommended mechanical soft diet with thin liquids. Pt Condition on Discharge: Stable Discharge Disposition: Disch w/ Home Health Serv Discharge Instructions DIET: Follow Instructions for: Heart Healthy Diet Speech Therapy-Diet Recommends: Mechanical Soft Follow up Referrals: Gastroenterology - 2 Weeks with Isidro Villalta MD Neurology - 2 Weeks with Zane Bustamante MD PCP Follow-up - [address] Sergey Hodge New Medications: Famotidine (Famotidine) 20 Mg Tab 10 MG PO BID for esophagitis, #62 TAB Continued Medications: Glipizide (Glipizide) 5 Mg Tab 5 MG PO BIDAC for Blood Sugar Management, #30 TAB 0 Refills Take 30 minutes before a meal Discontinued Medications: Aspirin (Aspirin) 81 Mg Chew 81 MG PO DAILY, TAB 0 Refills Additional Information Patient examined. Assessment and plan formulated with Lorie Underwood PA-C. I agree with the above. Lorie Underwood December 02, 2017 11:22 Tesfaye Butler DO December 08, 2017 00:49
--- NOTE | 2017-12-02 11:45 | HHI.GIFU ---
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 SAid she passed her swallow eval, happy she doesn't need thickened liquids. (Belle Sandoval) Objective Vitals I&O Vital Signs Date Time Temp Pulse Resp B/P (MAP) Pulse Ox O2 Delivery O2 Flow Rate FiO2 12/02/17 10:47 97.4 64 20 111/54 (73) 99 12/02/17 07:18 97.7 90 20 108/57 (74) 98 12/02/17 05:05 98.5 76 18 132/74 (93) 98 12/02/17 00:49 97.8 82 16 126/66 (86) 98 12/01/17 20:12 98.3 86 16 134/62 (86) 98 12/01/17 15:58 97.8 75 18 174/81 (112) 96 12/01/17 14:37 97.9 66 14 143/67 (92) 100 I/O 12/01/17 12/01/17 12/01/17 12/02/17 12/02/17 12/02/17 07:00 15:00 23:00 07:00 15:00 23:00 Intake Total 600 ml 780 ml 220 ml Balance 600 ml 780 ml 220 ml Intake Oral 780 ml 220 ml Other 600 ml # Voids 1 3 2 Laboratory Laboratory Tests Test 11/28/17 14:55 11/28/17 16:55 11/29/17 05:43 11/29/17 11:59 Prothrombin Time 10.7 SEC Prothromb Time International Ratio 1.1 RATIO Activated Partial Thromboplast Time 26.1 SEC Blood Urea Nitrogen 29 MG/DL 28 MG/DL Creatinine 1.42 MG/DL 1.20 MG/DL Random Glucose 111 MG/DL 96 MG/DL Total Protein 7.2 GM/DL Albumin 3.8 GM/DL Calcium Level 9.0 MG/DL 9.1 MG/DL Alkaline Phosphatase 86 U/L Aspartate Amino Transf (AST/SGOT) 34 U/L Alanine Aminotransferase (ALT/SGPT) 20 U/L Total Bilirubin 0.6 MG/DL Sodium Level 140 MEQ/L 142 MEQ/L Potassium Level 4.9 MEQ/L 3.8 MEQ/L Chloride Level 107 MEQ/L 108 MEQ/L Carbon Dioxide Level 22.0 MEQ/L 25.4 MEQ/L Total Creatine Kinase 93 U/L Troponin I LESS THAN 0.02 NG/ML Triglycerides Level 90 MG/DL Cholesterol Level 225 MG/DL LDL Cholesterol 150 MG/DL HDL Cholesterol 57.4 MG/DL Cholesterol/HDL Ratio 3.91 RATIO Urine Color LIGHT-YELLOW Urine Turbidity CLEAR Urine pH 5.5 Urine Specific Aldie 1.010 Urine Protein NEG mg/dL Urine Glucose (UA) NEG mg/dL Urine Ketones NEG mg/dL Urine Occult Blood NEG Urine Nitrite NEG Urine Bilirubin NEG Urine Urobilinogen LESS THAN 2.0 MG/DL Urine Leukocyte Esterase MOD Urine WBC 6 /hpf Urine Squamous Epithelial Cells 1 /hpf Urine Transitional Epithelial Cells <1 /hpf Urine Hyaline Casts 2 /lpf Urine Granular Casts 2 /lpf Microscopic Urinalysis Comment CULT NOT INDICATED White Blood Count 5.4 TH/MM3 Red Blood Count 5.00 MIL/MM3 Hemoglobin 14.4 GM/DL Hematocrit 42.9 % Mean Corpuscular Volume 85.8 FL Mean Corpuscular Hemoglobin 28.8 PG Mean Corpuscular Hemoglobin Concent 33.5 % Red Cell Distribution Width 15.1 % Platelet Count 179 TH/MM3 Mean Platelet Volume 8.4 FL Neutrophils (%) (Auto) 51.8 % Lymphocytes (%) (Auto) 33.4 % Monocytes (%) (Auto) 8.5 % Eosinophils (%) (Auto) 5.1 % Basophils (%) (Auto) 1.2 % Neutrophils # (Auto) 2.8 TH/MM3 Lymphocytes # (Auto) 1.8 TH/MM3 Monocytes # (Auto) 0.5 TH/MM3 Eosinophils # (Auto) 0.3 TH/MM3 Basophils # (Auto) 0.1 TH/MM3 CBC Comment DIFF FINAL Differential Comment Anion Gap 9 MEQ/L Estimat Glomerular Filtration Rate 42 ML/MIN Erythrocyte Sedimentation Rate 4 mm/hr C-Reactive Protein LESS THAN 0.29 MG/DL Vitamin B12 Level 376 PG/ML Thyroid Stimulating Hormone 3rd Gen 3.890 uIU/ML Imaging Last Impressions Head Magnetic Resonance Angiography 11/29/17 0000 Signed Impressions: Service Date/Time: Wednesday, November 29, 2017 09:59 - CONCLUSION: No evidence of vessel truncation or aneurysm. Jimmy Webster MD Head CT 11/28/17 1429 Signed Impressions: Service Date/Time: Tuesday, November 28, 2017 15:42 - CONCLUSION: 1. Senescent changes without acute intracranial abnormality. Pérez Tovar MD Chest X-Ray 11/28/17 1429 Signed Impressions: Service Date/Time: Tuesday, November 28, 2017 14:59 - CONCLUSION: No acute disease. Daniel Grider MD Brain MRI 11/28/17 0000 Signed Impressions: Service Date/Time: Tuesday, November 28, 2017 21:21 - CONCLUSION: 1. No acute abnormality seen. 2. Mild atrophy and suspected small vessel ischemic change in the white matter. Javier Silva MD Physical Exam HEENT: eye shield over right eye, normocephalic; atraumatic; CHEST: CTA CARDIAC: RRR + murmur ABDOMEN: Soft, nondistended, nontender; no hepatosplenomegaly; bowel sounds are present in all four quadrants. EXTREMITIES: No clubbing, cyanosis, or edema. SKIN: Normal; no rash; no jaundice. MACHINE HEEL SEAT LASTER: No focal deficits; alert and oriented times three. (Belle Sandoval) Assessment and Plan Plan - Dysphagia- This is occasional, coughing and chocking episodes with eating. Was seen by ST who recommended puree diet, and honey consistency thickened. Denies nausea, vomiting, abd pain or GERD. - Possible TIA- presented to the ED at [facility] on 11/28/17 with complaints of waking up with double vision/horizontal diplopia occurring with both eyes. pt was evaluated by neurology and this was felt to be selective involvement of the right medial rectus without pupillary involvement or any ptosis, felt to be likely related to peripheral ischemic disease secondary to chronic diabetes. - diabetes mellitus, type 2, CKD, stage 3 and severe aortic valve stenosis per attending 12/02/17 s/p EGD and dilatation esophageal strictures, erosive gastritis and erosive duodenitis also found. bx pending. pt had swallow eval, recs for mech soft diet and thin liquid. Plan: - mech soft diet with thin liquid per [employer]IE[employer]EC[employer]IVE - await bx - f/u with GI after d/c - hold PPi in light of allergy - ok to d/c from GI stand point pt seen by myself and Dr Villalta and this note is on his behalf (Belle Sandoval) Physician Comments Patient seen and examined Agree with above Continue with current supportive care Monitor labs Follow-up with GI post discharge (Isidro Villalta MD) Belle Sandoval December 02, 2017 11:45 Isidro Villalta MD December 02, 2017 22:38
== END 2017-12-02 15:06 | disposition home or self-care (01) ==
LOC: NEPC 13:45 → NEDA 18:11 → NEPHCDU 22:19
PROVIDERS: ADMIT Family Medicine; ATTEND Family Medicine
DX: H53.2 Diplopia (principal); H49.01 Third [oculomotor] nerve palsy, right eye; K29.60 Other gastritis without bleeding; K22.2 Esophageal obstruction; K29.80 Duodenitis without bleeding; I12.9 Hypertensive chronic kidney disease with stage 1 through stage 4 chronic kidney disease, or unspecified chronic kidney disease; E11.22 Type 2 diabetes mellitus with diabetic chronic kidney disease; N18.3 Chronic kidney disease, stage 3 (moderate); I08.0 Rheumatic disorders of both mitral and aortic valves; R41.3 Other amnesia; E11.51 Type 2 diabetes mellitus with diabetic peripheral angiopathy without gangrene; E03.9 Hypothyroidism, unspecified; E78.5 Hyperlipidemia, unspecified; G25.0 Essential tremor; I44.0 Atrioventricular block, first degree; R94.31 Abnormal electrocardiogram [ECG] [EKG]; I44.7 Left bundle-branch block, unspecified; H40.9 Unspecified glaucoma; Z79.82 Long term (current) use of aspirin; Z79.899 Other long term (current) drug therapy
CPT/HCPCS: 00731; 36415; 43239; 43248; 70450; 70544; 70551; 71045; 80048; 80053; 80061; 81001; 82550; 82607; 82948; 84443; 84484; 85025; 85610; 85652; 85730; 86140; 88305; 88312; 92526; 92610; 93005; 97110; 97116; 97163; 97530; 99285; C1769; G0378; G8987; G8988; J2370; J2405